=== PATIENT | female | born 1970 | race Caucasian/White ===

== ENCOUNTER 2024-09-25 10:05 | Inpatient (IN) | payer OTHER, SELFPAY ==
[2024-09-25] VITALS (8 sets, daily range): BP systolic 113–138; BP diastolic 64–88; PULSE 48–69; RESP 15–20; TEMP 36.3–36.4; O2SAT 91–99; BMI 36.8
--- NOTE | ~2024-09-25 | XR_ITS ---
EXAMINATION: XR chest 1V portable 09/25/2024 11:53 INDICATION: Preoperative left ankle fracture PROCEDURE: AP portable chest COMPARISON: No prior studies for comparison. FINDINGS: The lungs are clear. The cardiomediastinal silhouette is within normal limits. There are no pleural effusions. There is no pneumothorax suspected. IMPRESSION: 1: NO ACUTE CARDIOPULMONARY DISEASE. Reviewed, dictated and finalized at location B. KER
--- NOTE | ~2024-09-25 | XR_ITS ---
EXAMINATION: XR tibia fibula LT 2V DATE: 09/25/2024 10:19 INDICATION: Left lower leg injury. TECHNIQUE: 2 views of left tibia and fibula were obtained. COMPARISON: None. FINDINGS: There is a comminuted fracture of distal fibula. The main distal fracture fragment demonstr ates 40 degrees posterior angulation and 3 mm lateral displacement. There is posterior dislocation of talus respect to the tibial plafond. There is a displaced fracture of posterior malleolus. There is at least mild knee joint osteoarthrosis. IMPRESSION: 1. Left ankle fracture dislocation. Reviewed, dictated and finalized at location A. ER DISTILLERY
--- NOTE | ~2024-09-25 | XR_ITS ---
EXAMINATION: XR surgery orthopedic DATE: 09/26/2024 11:19 INDICATION: ORIF left ankle fracture TECHNIQUE: 5 fluoroscopic images of the left ankle were obtained during procedure performed by Dr. Florin bajwa. Radiologist was not present for the imaging or procedure. The amount of fluoroscopy time used during this procedure was 0.6 minutes. Total DAP was 0.362 Gycm^2 COMPARISON: 09/25/2024 FINDINGS: Images demonstrate initial reduction and fixation near-anatomic alignment of the posterior malleolar fracture fragment which is fixed with a pair of anterior to posterior directed cannulated lag screws. Subsequently there is fixation in near-anatomic alignment with lateral plate and screws of the obliq ue fibular fracture. There is also a tightrope type syndesmotic fixation with metallic button along t he medial side of the lucent tunnel extending to the distal tibial and fibular metaphyseal regions. A nkle mortise is congruent. Joint spaces are normal. No new fractures identified. IMPRESSION: 1. Near-anatomic alignment post open reduction internal fixation of medial and posterior malleolar fr actures at the left ankle. Reviewed, dictated and finalized at location B. 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 Near-anatomic alignment post open reduction internal fixation of medial and posterior malleolar fractures at the left ankle.
--- NOTE | ~2024-09-25 | XR_ITS ---
EXAMINATION: XR ankle LT min 3V DATE: 09/25/2024 11:01 INDICATION: Status post reduction of a left ankle fracture dislocation TECHNIQUE: Anteroposterior, oblique and lateral views of the left ankle were obtained. COMPARISON: None. FINDINGS: The left ankle fracture dislocation has been reduced with significant improvement in alignment. There is 3 mm residual lateral displacement of the oblique lateral malleolar fracture with similar degree of residual lateral subluxation of the previously dislocated talar dome with respect to the tibial pl afond. This can be seen with persistent mild widening of the medial clear space. Significant decrease in now 4 mm posterior superior displacement of the posterior malleolar fragment with to have 3 mm re sidual incongruity along articular surface at the posterior tibial plafond and. No other fractures id entified. Mild osteoarthritis at a few of the tarsal metatarsal joints in the midfoot. Fiberglas spli nting material has been placed about the foot and visualized lower leg. IMPRESSION: 1. Significant decrease in now mild residual displacement of lateral and posterior malleolar fragment s and successful reduction of the previously dislocated tibiotalar joint with mild residual lateral s ubluxation. Reviewed, dictated and finalized at location A. 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 Significant decrease in now mild residual displacement of lateral and buffing wheel inspector ior malleolar fragments and successful reduction of the previously dislocated t ibiotalar joint with mild residual lateral subluxation.
--- NOTE | ~2024-09-25 | XR_ITS ---
XR ankle LT min 3V 09/25/2024 10:19 Indication: Left ankle deformity after fall Procedure: 2 views left ankle Comparison: No prior studies for comparison. Findings: There is a comminuted displaced distal fibular fracture with lateral angulation. There is l ateral displacement of the talus with respect to the tibia. There is a displaced fracture of the post erior aspect of the distal tibia. Talar dome is grossly unremarkable. Mild diffuse soft tissue swelli ng. Impression: 1: Displaced fractures of the distal aspect of the fibula and the posterior inferior margin of the ti lupe. There is posterior and lateral displacement of the talus with respect to the tibia. Reviewed, dictated and finalized at location B. ER HAND Impression: 1: Displaced fractures of the distal aspect of the fibula and the posterior inf erior margin of the tibia. There is posterior and lateral displacement of the t alus with respect to the tibia.
--- NOTE | 2024-09-25 10:16 | ED.LOWEXIN ---
HPI - Extremity Injury (Lower) General Chief Complaint: Extremity Injury, Lower <Sunshine Carney PA-C - Last Filed: 09/25/24 14:45> Stated Complaint: LE deformity <VALERIE Juan Last Filed: 09/25/24 14:45> Source: patient <VALERIE Juan Last Filed: 09/25/24 14:45> Mode of arrival: EMS <VALERIE Juan Last Filed: 09/25/24 14:45> Limitations: no limitations <VALERIE Juan Last Filed: 09/25/24 14:45> History of Present Illness HPI Narrative: Patient is a 54-year-old female who presents the ED via EMS with report of left ankle pain. Patient reports she was changing her son around her house wearing slippers when she slipped and fell, felt a sharp pain in her left ankle. Deformity noted. She began having some discoloration to her foot and EMS was called. Denies numbness. Denies any other injuries. Denies head injury or LOC. <Sunshine Carney PA-C Last Filed: 09/25/24 14:45> Related Data Allergies/Adverse Reactions: Allergies Allergy/AdvReac Type Severity Reaction Status Date / Time No Known Allergies Allergy Verified 09/25/24 10:11 <Sunshine Carney PA-C - Last Filed: 09/25/24 14:45> Review of Systems Review of Systems: All systems reviewed & are unremarkable except as noted in HPI. <Sunshine Carney PA-C - Last Filed: 09/25/24 14:45> All systems reviewed & are unremarkable except as noted in HPI and below <VALERIE Juan Last Filed: 09/25/24 14:45> Exam Narrative: GENERAL: Well appearing, obese with BMI of 39.9, non-toxic, in no acute distress. HEAD: Normocephalic, atraumatic. RESPIRATORY: Airway patent, respirations nonlabored. CARDIOVASCULAR: Regular rate and rhythm without murmurs, rubs, or gallops. DP pulses are intact. MUSCULOSKELETAL: Obvious deformity to L ankle with anterior protrusion of distal tibia with dimpling of skin above lateral and medial malleoli. Focal TTP. Sensation is intact throughout left foot and lower leg. Capillary refill brisk and intact throughout toes. SKIN: Warm, dry, normal color. NEURO: A&O X3. Speech clear. No ataxic movements. PSYCHIATRIC: Appropriate mood and affect. Normal interaction. <Sunshine Carney PA-C - Last Filed: 09/25/24 14:45> Course [employer]/PA Physician Supervision For this patient encounter, I reviewed the [employer] or PA documentation, treatment plan, and medical decision making; and I had [id number] time with this patient. <John Bronson MD - Last Filed: 09/25/24 10:26> Vital Signs Vital signs: Vital Signs Temperature 97.5 F L 09/25/24 10:07 Pulse Rate 67 09/25/24 10:07 Respiratory Rate 20 09/25/24 10:07 Blood Pressure 138/84 09/25/24 10:07 Pulse Oximetry 98 09/25/24 10:07 Oxygen Delivery Room Air 09/25/24 10:07 Temperature 97.5 F L 09/25/24 10:07 Pulse Rate 48 L 09/25/24 14:00 Respiratory Rate 16 09/25/24 14:00 Blood Pressure 120/88 09/25/24 13:31 Pulse Oximetry 91 09/25/24 14:00 Oxygen Delivery Room Air 09/25/24 10:07 <Sunshine Carney PA-C - Last Filed: 09/25/24 14:45> Vital Signs Temperature 97.5 F L 09/25/24 10:07 Pulse Rate 67 09/25/24 10:07 Respiratory Rate 20 09/25/24 10:07 Blood Pressure 138/84 09/25/24 10:07 Pulse Oximetry 98 09/25/24 10:07 Oxygen Delivery Room Air 09/25/24 10:07 Temperature 97.5 F L 09/25/24 10:07 Pulse Rate 48 L 09/25/24 14:00 Respiratory Rate 16 09/25/24 14:00 Blood Pressure 120/88 09/25/24 13:31 Pulse Oximetry 91 09/25/24 14:00 Oxygen Delivery Room Air 09/25/24 10:07 <John Bronson MD - Last Filed: 09/25/24 10:26> Procedures Orthopedic Joint Reduction Joint #1: Orthopedic Joint Reduction Date: 09/25/24 <VALERIE Juan Last Filed: 09/25/24 14:45> Orthopedic Joint Reduction Time: 10:50 <Sunshine Carney PA-C - Last Filed: 09/25/24 14:45> Time Out Performed: Yes <VALERIE Juan Last Filed: 09/25/24 14:45> Side: left <VALERIE Juan Last Filed: 09/25/24 14:45> Joint Reduction Location: ankle <VALERIE Juan Last Filed: 09/25/24 14:45> Analgesia: other (dilaudid) <VALERIE Juan Last Filed: 09/25/24 14:45> Pre-Procedure Neuro Vascular Exam: normal <VALERIE Juan Last Filed: 09/25/24 14:45> Local Anesthesia: none <VALERIE Juan Last Filed: 09/25/24 14:45> Technique used: direct manipulation <VALERIE Juan Last Filed: 09/25/24 14:45> Post-reduction neuro exam: intact and no change <VALERIE Juan Last Filed: 09/25/24 14:45> Post-reduction vascular: intact and no change <VALERIE Juan Last Filed: 09/25/24 14:45> Post Reduction X-Ray Obtained: Yes <VALERIE Juan Last Filed: 09/25/24 14:45> Post Reduction X-Ray Results: reduced <VALERIE Juan Last Filed: 09/25/24 14:45> Splint Applied: Yes <VALERIE Juan Last Filed: 09/25/24 14:45> Patient Tolerated Procedure: well and no complications <VALERIE Juan Last Filed: 09/25/24 14:45> Orthopedic Splinting/Casting Injury #1: Splinting/Casting Date: 09/25/24 <Sunshine Carney PA-C - Last Filed: 09/25/24 14:45> Splinting/Casting Time: 10:58 <VALERIE Juan Last Filed: 09/25/24 14:45> Side: left <VALERIE Juan Last Filed: 09/25/24 14:45> Lower Extremity Injury Location: lower leg and ankle <VALERIE Juan Last Filed: 09/25/24 14:45> Lower Extremity Immobilizer: posterior splint and stirrup splint <VALERIE Juan Last Filed: 09/25/24 14:45> Splint: customized in ED <VALERIE Juan Last Filed: 09/25/24 14:45> Pre-Procedure Neuro Vascular Exam: normal <VALERIE Juan Last Filed: 09/25/24 14:45> Post-Procedure Neuro Vascular Exam: normal <VALERIE Juan Last Filed: 09/25/24 14:45> Other Orthopedic Equipment: crutches <VALERIE Juan Last Filed: 09/25/24 14:45> MDM - Extremity Injury (Lower) MDM Narrative Medical decision making narrative: Patient presented to ED with ground level fall, pain/deformity to L ankle. VSS upon arrival. Obvious deformity noted. Neurovascularly intact. Able to palpate dp pulses. Sensation intact. No other injuries. XR showing dislocation of ankle, fx of distal fibula and posterior malleoli. Patient updated on imaging results. Given pain medication and joint was reduced in the ED with direct manipulation. Placed in short leg posterior leg splint with stirrup. Post reduction film showing reduction of ankle, improvement of lateral displacement. Discussed case with Dr. Hanks, orthopedics, advised can take to the OR tomorrow morning to repair. No availability for OR today. Patient is in agreement with this plan and surgery tomorrow. Discussed case with Sada Viramontes [employer] hospitalist, accepted patient for admission. Pre-op workup obtained. NPO midnight. <Sunshine Carney PA-C - Last Filed: 09/25/24 14:45> Medical Records Attestation: I reviewed the patient's medical records. <Sunshine Carney PA-C - Last Filed: 09/25/24 14:45> Lab Data Attestation: I reviewed the patient's lab results. <Sunshine Carney PA-C - Last Filed: 09/25/24 14:45> Result diagrams: 09/25/24 11:51 09/25/24 11:51 <Sunshien Carney PA-C - Last Filed: 09/25/24 14:45> Labs: Lab Results 09/25/24 Range/Units 11:51 WBC 4.8 (4.5-10.0) K/mm3 RBC 4.41 (4.2-5.4) M/mm3 Hgb 14.0 (12.0-15.0) g/dL Hct 40.3 (37.0-47.0) % MCV 91.4 (80-100) fl MCH 31.7 (26-34) pg MCHC 34.7 (32-36) g/dl RDW 12.6 (11.5-14.5) % Plt Count 192 (150-375) k/mm3 MPV 9.3 (7.4-10.4) fl Immature Gran % (Auto) 0.2 (0-0.5) % Neut % (Auto) 69.5 (45.5-73.1) % Lymph % (Auto) 23.9 (18.3-44.2) % [place] % (Auto) 5.4 (2.6-8.5) % Eos % (Auto) 0.4 (0-4.4) % Baso % (Auto) 0.6 (0.2-1.2) % Lymph # (Auto) 1.15 (0.9-3.2) K/mm3 [place] # (Auto) 0.3 (0.1-0.6) K/mm3 Eos # (Auto) 0.0 (0-0.3) K/mm3 Baso # (Auto) 0.0 (0.0-0.1) K/mm3 Abs Immat Gran (auto) 0.01 (0.00-0.031) K/mm3 Absolute Neuts (auto) 3.4 (1.3-6.7) K/mm3 Absolute Nucleated RBC 0.000 (0.0-0.012) K/mm3 Nucleated RBC % 0.0 (0.0-0.2) % PT 13.1 (11.1-14.7) Seconds INR 0.9 APTT 26.3 (22.3-36.8) Seconds Sodium 138 (137-145) mmol/L Potassium 4.1 (3.4-5.0) mmol/L Chloride 105 (98-107) mmol/L Carbon Dioxide 27 (22-30) mmol/L Anion Gap 6 (4-12) mmol/L BUN 15 (7-17) mg/dL Creatinine 0.43 L (0.7-1.0) mg/dL Estim Creat Clear Calc 128 ml/min Estimated GFR > 60 (59 - ) Glucose 113 H (65-110) mg/dL Calcium 9.1 (8.4-10.2) mg/dL Total Bilirubin 0.4 (0.2-1.3) mg/dL AST 33 (14-36) U/L ALT 26 (6-35) U/L Alkaline Phosphatase 74 (38-126) U/L Total Protein 7.0 (6.3-8.2) g/dL Albumin 4.3 (3.5-5.1) g/dL <Sunshine Carney PA-C - Last Filed: 09/25/24 14:45> Lab Results 09/25/24 Range/Units 11:51 WBC 4.8 (4.5-10.0) K/mm3 RBC 4.41 (4.2-5.4) M/mm3 Hgb 14.0 (12.0-15.0) g/dL Hct 40.3 (37.0-47.0) % MCV 91.4 (80-100) fl MCH 31.7 (26-34) pg MCHC 34.7 (32-36) g/dl RDW 12.6 (11.5-14.5) % Plt Count 192 (150-375) k/mm3 MPV 9.3 (7.4-10.4) fl Immature Gran % (Auto) 0.2 (0-0.5) % Neut % (Auto) 69.5 (45.5-73.1) % Lymph % (Auto) 23.9 (18.3-44.2) % [place] % (Auto) 5.4 (2.6-8.5) % Eos % (Auto) 0.4 (0-4.4) % Baso % (Auto) 0.6 (0.2-1.2) % Lymph # (Auto) 1.15 (0.9-3.2) K/mm3 [place] # (Auto) 0.3 (0.1-0.6) K/mm3 Eos # (Auto) 0.0 (0-0.3) K/mm3 Baso # (Auto) 0.0 (0.0-0.1) K/mm3 Abs Immat Gran (auto) 0.01 (0.00-0.031) K/mm3 Absolute Neuts (auto) 3.4 (1.3-6.7) K/mm3 Absolute Nucleated RBC 0.000 (0.0-0.012) K/mm3 Nucleated RBC % 0.0 (0.0-0.2) % PT 13.1 (11.1-14.7) Seconds INR 0.9 APTT 26.3 (22.3-36.8) Seconds Sodium 138 (137-145) mmol/L Potassium 4.1 (3.4-5.0) mmol/L Chloride 105 (98-107) mmol/L Carbon Dioxide 27 (22-30) mmol/L Anion Gap 6 (4-12) mmol/L BUN 15 (7-17) mg/dL Creatinine 0.43 L (0.7-1.0) mg/dL Estim Creat Clear Calc 128 ml/min Estimated GFR > 60 (59 - ) Glucose 113 H (65-110) mg/dL Calcium 9.1 (8.4-10.2) mg/dL Total Bilirubin 0.4 (0.2-1.3) mg/dL AST 33 (14-36) U/L ALT 26 (6-35) U/L Alkaline Phosphatase 74 (38-126) U/L Total Protein 7.0 (6.3-8.2) g/dL Albumin 4.3 (3.5-5.1) g/dL <John Bronson MD - Last Filed: 09/25/24 10:26> Imaging Data Attestation: I personally reviewed and interpreted this imaging study as follows: <Sunshine Carney PA-C - Last Filed: 09/25/24 14:45> Radiologist's impression: ITS Impressions Ankle X-Ray 09/25/24 10:22 Impression: 1: Displaced fractures of the distal aspect of the fibula and the posterior inferior margin of the tibia. There is posterior and lateral displacement of the talus with respect to the tibia. Tibia/Fibula X-Ray 09/25/24 10:26 IMPRESSION: 1. Left ankle fracture dislocation. Ankle X-Ray 09/25/24 11:03 IMPRESSION: 1. Significant decrease in now mild residual displacement of lateral and posterior malleolar fragments and successful reduction of the previously dislocated tibiotalar joint with mild residual lateral subluxation. <Sunshine Carney PA-C - Last Filed: 09/25/24 14:45> Discharge Plan Discharge Clinical Impression: Fall from ground level Bimalleolar fracture of left ankle Qualifiers: Encounter type: initial encounter Fracture type: closed Qualified Code(s): S82.842A - Displaced bimalleolar fracture of left lower leg, initial encounter for closed fracture Closed dislocation of ankle Qualifiers: Encounter type: initial encounter Laterality: left Qualified Code(s): S93.05XA - Dislocation of left ankle joint, initial encounter <Sunshine Carney PA-C - Last Filed: 09/25/24 14:45> Patient Disposition: Still a Patient <VALERIE Juan Last Filed: 09/25/24 14:45> Condition: Stable <VALERIE Juan Last Filed: 09/25/24 14:45> Patient Language: Setswana <VALERIE Juan Last Filed: 09/25/24 14:45>
[2024-09-25] MEDS: HYDROmorphone HCL INJ (*CRX) 1 MG/ML SYR 0.5 MG IV PUSH ×3 (10:20→19:51)
[2024-09-25] MEDS: HYDROmorphone HCL INJ (*CRX) 1 MG/ML SYR IV PUSH (10:45)
--- OUTSIDE RECORDS SUMMARY | 2024-09-25 11:31 | XMS_ITS | Referral Summary ---
Author Organization [facility] Building [address] Address [address] [place] [address] Care Team Providers Care Executive Administrative Asst Name Role Phone Harvey Leonard MD Unavailable [phone] Jing Knight MD Primary Care Provider Trudi Lira DPT Unavailab le Encounters Date Type Department Care Team Description 09/10/2024 2:15 PM DAILY SALES AUDIT CLERK Telemedicine [facility] [id number] [address] Harvey Rodriguez MD ADHD, adult residual type (Primary Dx); Moderate episode of recurrent major depressive disorder (HCC) from Last 3 Months Allergies Active Allergy Reactions Criticality Noted Date Comments Chlorhexidine Rash Medium 03/06/2024 Medications aspirin 81 mg enteric coated tabletIndication s:prevention of thrombosis Take 1 tablet (81 mg total) by mouth nightly Active fluticasone propionate (FLONASE) 50 mcg/actuation nasal sprayIndications :Seasonal allergic rhinitis due to pollen Administer 2 sprays into each nostril daily 16 g 11 04/19/20 Active Additional Information Patient taking differently:2 spray each nostrilAs needed, allergies, rhinitis, Informant: Self, Reported on 12/24/2023 DULoxetine (CYMBALTA) 60 mg capsuleIndicatio ns:Lumbar radiculopathy Take 1 capsule (60 mg total) by mouth daily 90 capsule 3 11/14/19 24 2024 Active Additional Information Patient taking differently:60 mg oralNightly, Indications: Anxiety with Depression, pain, Informant: Self, Reported on 12/24/2023 acetaminophen (TYLENOL) 500 mg tablet Take 2 tablets (1,000 mg total) by mouth every 6 (six) hours as needed for pain 60 tablet 03/13/20 24 Active ibuprofen (ADVIL,MOTRIN) 600 mg tablet Take 1 tablet (600 mg total) by mouth every 6 (six) hours as needed for pain 30 tablet 03/13/20 24 Active famotidine (PEPCID) 20 mg tabletIndication s:Gastroesophage al reflux disease without esophagitis Take 1 tablet (20 mg total) by mouth 2 (two) times a day as needed for heartburn or indigestion 180 tablet 1 03/27/20 24 Active Gemtesa 75 mg tablet TAKE 1 TABLET BY MOUTH EVERY DAY 90 tablet 2 06/04/20 24 Active lisdexamfetamine (Vyvanse) 50 mg capsule Take 1 capsule (50 mg total) by mouth every morning 30 capsule 09/10/19 25 2024 Active lisdexamfetamine (Vyvanse) 50 mg capsule Take 1 capsule (50 mg total) by mouth every morning 30 capsule 10/10/19 25 2024 Active lisdexamfetamine (Vyvanse) 50 mg capsule Take 1 capsule (50 mg total) by mouth every morning 30 capsule 11/10/19 25 2024 Active lisdexamfetamine (Vyvanse) 50 mg capsule Take 1 capsule (50 mg total) by mouth every morning 30 capsule 06/15/20 24 2024 Discontinued lisdexamfetamine (Vyvanse) 50 mg capsule Take 1 capsule (50 mg total) by mouth every morning 30 capsule 07/15/20 24 2024 Discontinued lisdexamfetamine (Vyvanse) 50 mg capsule Take 1 capsule (50 mg total) by mouth every morning 30 capsule 08/14/20 24 2024 Discontinued Active Problems Problem Noted Date Diagnosed Date Postoperative state 02/15/2024 Mixed stress and urge urinary incontinence 07/27 Assessment & Plan (11/29/2023 1:12 PM CDT): -confirmed on urodynamics in 08/2023 -her symptoms have been refractory to medications; PFPT has been helpful in regards to urge suppression -currently on Gemtesa, we discussed trial off medication prior to Interstim if she desires to see how much it is helping. We discussed that they may want her to stop medication during trial phase. -she has upcoming procedure dates with Dr. Ragsdale for Bulkamid to address NAHOMI and Interstim for UUI Pelvic floor dysfunction in female 07/27/2023 Assessment & Plan (11/29/2023 1:08 PM CDT): -she has noticed significant improvement with PFPT and had upcoming visit. Discussed having her return to PFPT following Bulkamid and SNS placement Other chest pain 10/11/2022 Overview (10/11/2022): Pt reports negative cardiac eval in 2016. [place] related to stress/anxiety. Monitor. If psych feels unrelated to anxiety then consider refer to cards ADHD, adult residual type 08/07/2022 Assessment & Plan (09/10/2024 2:33 PM DAILY SALES AUDIT CLERK): Chronic, persistent symptoms of inattention, distractibility, inability to complete tasks on time, disorganization, failure to give close attention to details/careless mistakes, difficulty sustaining attention in tasks, loses items, forgetful in daily activities, and is easily distracted by extraneous stimuli. There is clear evidence of clinically significant impairment in social, academic, and/or occupational functioning. The patient reports overall efficacy with the current medication regimen. The patient reports taking all medications as prescribed. The patient does not report any side effects from these medications. Risk of long-term cardiovascular complications discussed with the patient at length including increased likelihood of changes to the structure and function being of the heart and cardiovascular system. The patient verbalized an understanding and expressed a desire to continue with current medication management. Compensatory strategies discussed for dealing with the ongoing symptoms of ADHD including the importance of structure, planning, and organization. Continue treatment with the following medications: Vyvanse 50 mg daily Refills sent to the patient's pharmacy. Continue to monitor at interval as discussed. Assessment & Plan (06/15/2024 9:27 PM CDT): Chronic, persistent symptoms of inattention, distractibility, inability to complete tasks on time, disorganization, failure to give close attention to details/careless mistakes, difficulty sustaining attention in tasks, loses items, forgetful in daily activities, and is easily distracted by extraneous stimuli. There is clear evidence of clinically significant impairment in social, academic, and/or occupational functioning. The patient reports overall efficacy with the current medication regimen. The patient reports taking all medications as prescribed. The patient does not report any side effects from these medications. Risk of long-term cardiovascular complications discussed with the patient at length including increased likelihood of changes to the structure and function being of the heart and cardiovascular system. The patient verbalized an understanding and expressed a desire to continue with current medication management. Compensatory strategies discussed for dealing with the ongoing symptoms of ADHD including the importance of structure, planning, and organization. Continue treatment with the following medications: Vyvanse 50 mg daily Refills sent to the patient's pharmacy. Continue to monitor at interval as discussed. Assessment & Plan (03/23/2024 8:56 PM CDT): Chronic, persistent symptoms of inattention, distractibility, inability to complete tasks on time, disorganization, failure to give close attention to details/careless mistakes, difficulty sustaining attention in tasks, loses items, forgetful in daily activities, and is easily distracted by extraneous stimuli. There is clear evidence of clinically significant impairment in social, academic, and/or occupational functioning. The patient reports overall efficacy with the current medication regimen. The patient reports taking all medications as prescribed. The patient does not report any side effects from these medications. Risk of long-term cardiovascular complications discussed with the patient at length including increased likelihood of changes to the structure and function being of the heart and cardiovascular system. The patient verbalized an understanding and expressed a desire to continue with current medication management. Compensatory strategies discussed for dealing with the ongoing symptoms of ADHD including the importance of structure, planning, and organization. Continue treatment with the following medications: Vyvanse 50 mg daily Refills sent to the patient's pharmacy. Continue to monitor at interval as discussed. Assessment & Plan (11/21/2023 7:35 PM CDT): Chronic, persistent symptoms of inattention, distractibility, inability to complete tasks on time, disorganization, failure to give close attention to details/careless mistakes, difficulty sustaining attention in tasks, loses items, forgetful in daily activities, and is easily distracted by extraneous stimuli. There is clear evidence of clinically significant impairment in social, academic, and/or occupational functioning. The patient reports overall efficacy with the current medication regimen. The patient reports taking all medications as prescribed. The patient does not report any side effects from these medications. Risk of long-term cardiovascular complications discussed with the patient at length including increased likelihood of changes to the structure and function being of the heart and cardiovascular system. The patient verbalized an understanding and expressed a desire to continue with current medication management. Compensatory strategies discussed for dealing with the ongoing symptoms of ADHD including the importance of structure, planning, and organization. Continue treatment with the following medications: Vyvanse 50 mg daily Refills sent to the patient's pharmacy. Continue to monitor at interval as discussed. Assessment & Plan (08/01/2023 1:44 PM DAILY SALES AUDIT CLERK): Chronic, persistent symptoms of inattention, distractibility, inability to complete tasks on time, disorganization, failure to give close attention to details/careless mistakes, difficulty sustaining attention in tasks, loses items, forgetful in daily activities, and is easily distracted by extraneous stimuli. There is clear evidence of clinically significant impairment in social, academic, and/or occupational functioning. The patient reports overall efficacy with the current medication regimen. The patient reports taking all medications as prescribed. The patient does not report any side effects from these medications. Risk of long-term cardiovascular complications discussed with the patient at length including increased likelihood of changes to the structure and function being of the heart and cardiovascular system. The patient verbalized an understanding and expressed a desire to continue with current medication management. Compensatory strategies discussed for dealing with the ongoing symptoms of ADHD including the importance of structure, planning, and organization. Continue treatment with the following medications: Vyvanse 50 mg daily No refills needed at this time by the patient. Continue to monitor at interval as discussed. Assessment & Plan (06/19/2023 5:13 PM CDT): Chronic, persistent symptoms of inattention, distractibility, inability to complete tasks on time, disorganization, failure to give close attention to details/careless mistakes, difficulty sustaining attention in tasks, loses items, forgetful in daily activities, and is easily distracted by extraneous stimuli. There is clear evidence of clinically significant impairment in social, academic, and/or occupational functioning. The patient reports overall efficacy with the current medication regimen. The patient reports taking all medications as prescribed. The patient does not report any side effects from these medications. Risk of long-term cardiovascular complications discussed with the patient at length including increased likelihood of changes to the structure and function being of the heart and cardiovascular system. The patient verbalized an understanding and expressed a desire to continue with current medication management. Compensatory strategies discussed for dealing with the ongoing symptoms of ADHD including the importance of structure, planning, and organization. Continue treatment with the following medications: Vyvanse 50 mg daily No refills needed at this time by the patient. Continue to monitor at interval as discussed. Assessment & Plan (08/07/2022 5:33 PM DAILY SALES AUDIT CLERK): Chronic, persistent symptoms of inattention, distractibility, inability to complete tasks on time, disorganization, failure to give close attention to details/careless mistakes, difficulty sustaining attention in tasks, loses items, forgetful in daily activities, and is easily distracted by extraneous stimuli. There is clear evidence of clinically significant impairment in social, academic, and/or occupational functioning. The patient reports overall efficacy with the current medication regimen. The patient reports taking all medications as prescribed. The patient does not report any side effects from these medications. Risk of long-term cardiovascular complications discussed with the patient at length including increased likelihood of changes to the structure and function being of the heart and cardiovascular system. The patient verbalized an understanding and expressed a desire to continue with current medication management. Compensatory strategies discussed for dealing with the ongoing symptoms of ADHD including the importance of structure, planning, and organization. Continue treatment with the following medications: Vyvanse 50 mg daily No refills needed at this time by the patient. Continue to monitor at interval as discussed. Seasonal allergic rhinitis due to pollen 022 Assessment & Plan (04/19/2022 1:28 PM CDT): Sinus Rinse followed by Flonase 2 sprays into each nostril while looking down over the sink, do not sniff in or blow nose after use for at least 30 minutes daily Consider adding Zyrtec based on Blood allergy testing Esophagram to rule out Zenker diverticulum Call back with reflux medication and dosage Pharyngoesophageal dysphagia 04/19/2022 Assessment & Plan (04/19/2022 1:28 PM CDT): Sinus Rinse followed by Flonase 2 sprays into each nostril while looking down over the sink, do not sniff in or blow nose after use for at least 30 minutes daily Consider adding Zyrtec based on Blood allergy testing Esophagram to rule out Zenker diverticulum Call back with reflux medication and dosage Lumbar radiculopathy 02/28/2022 Insomnia secondary to chronic pain 02/28/2022 manager intermediate (current) use of opiate analgesic 02/17 Moderate episode of recurrent major depressive d isorder 01/19/2022 Assessment & Plan (09/10/2024 2:33 PM DAILY SALES AUDIT CLERK): Chronic condition, persistent symptoms, but functioning at or close to baseline at this time. Symptoms are reasonably well controlled on current medication regimen. The patient does not endorse any active suicidal ideation. Medication changes today: none Ongoing management to be provided as discussed and at interval as planned. Assessment & Plan (06/15/2024 9:27 PM CDT): Chronic condition, persistent symptoms, but functioning at or close to baseline at this time. Symptoms are reasonably well controlled on current medication regimen. The patient does not endorse any active suicidal ideation. Medication changes today: none Ongoing management to be provided as discussed and at interval as planned. Assessment & Plan (03/23/2024 8:56 PM CDT): Chronic condition, persistent symptoms, but functioning at or close to baseline at this time. Symptoms are reasonably well controlled on current medication regimen. The patient does not endorse any active suicidal ideation. Medication changes today: none Ongoing management to be provided as discussed and at interval as planned. Assessment & Plan (11/21/2023 7:35 PM CDT): Chronic condition, persistent symptoms, but functioning at or close to baseline at this time. Symptoms are reasonably well controlled on current medication regimen. The patient does not endorse any active suicidal ideation. Medication changes today: none Ongoing management to be provided as discussed and at interval as planned. Assessment & Plan (08/01/2023 1:47 PM DAILY SALES AUDIT CLERK): Chronic condition, persistent symptoms, but functioning at or close to baseline at this time. Symptoms are reasonably well controlled on current medication regimen. The patient does not endorse any active suicidal ideation. Medication changes today: none Ongoing management to be provided as discussed and at interval as planned. Assessment & Plan (06/19/2023 5:13 PM CDT): Chronic condition, persistent symptoms, but functioning at or close to baseline at this time. Symptoms are reasonably well controlled on current medication regimen. The patient does not endorse any active suicidal ideation. Medication changes today: none Ongoing management to be provided as discussed and at interval as planned. Assessment & Plan (08/07/2022 5:35 PM DAILY SALES AUDIT CLERK): Chronic condition, persistent symptoms, but functioning at or close to baseline at this time. Symptoms are reasonably well controlled on current medication regimen. The patient does not endorse any active suicidal ideation. Medication changes today: none Ongoing management to be provided as discussed and at interval as planned. Assessment & Plan (01/19/2022 4:15 PM CDT): Stable. Cont. Current prescription medications. Iliotibial band syndrome of right side 2 Assessment & Plan (01/19/2022 4:15 PM CDT): Chronic, would like to see pain management. Overactive bladder 10/06/2020 Assessment & Plan (06/06/2022 9:01 AM CDT): SINA Horton, will try Detrol LA. patient has had a full workup in the past for Urogynecology and declines a referral at this point. She reports that the your director employment told her she was not a surgical candidate at and that she could try Botox injections or a nerve stimulator device. She is not interested in either solution. Chronic pain of right knee 04/04/2020 Assessment & Plan (01/19/2022 4:15 PM CDT): Chronic, would like to see pain management. Chondromalacia of right patella 12/14/2019 Chronic neck pain 12/14/2019 Assessment & Plan (01/19/2022 4:15 PM CDT): Chronic, would like to see pain management. Chronic right hip pain 12/14/2019 Assessment & Plan (01/19/2022 4:15 PM CDT): Chronic, would like to see pain management. Labral tear of hip, degenerative 12/14/2019 Gastroesophageal reflux disease without esophagi tis 12/14/2019 Assessment & Plan (06/06/2022 9:00 AM CDT): Worsening, patient ran out of medication. Refill prescription sent. Assessment & Plan (01/19/2022 4:13 PM CDT): Currently on omeprazole, referred to ENT for further evaluation and mgmt. She feels that there may be a problem with her vocal cords. Resolved Problems Problem Noted Date Diagnosed Date Resolved Date Encounter for psychiatric assessment 08/07/2022 10/11/2022 Assessment & Plan (08/07/2022 5:31 PM DAILY SALES AUDIT CLERK): Psychiatric assessment was completed during the appointment today. All the paperwork completed by the patient was reviewed by me with the patient. All of the questions posed to me by the patient were answered. A treatment plan was developed in line with the information presented to me. Refer to specific problems for additional information regarding assessment and treatment recommendations. Attention deficit hyperactiv ity disorder (ADHD), predominantly inattentive type 03/03/2022 1 Attention deficit disorder (ADD) in adult 12/14/2019 10/11/2022 Assessment & Plan (06/06/2022 9:01 AM CDT): Patient has not been able to schedule appointment with psychiatry at this point, Sly wilkinson Encouraged patient to schedule appointment with Psychiatry. Immunizations Name Administration Dates Next Due Influenza, Quadrivalent, Spl it, Preservative Free, Intramuscular 06/06/2022 Influenza, Unspecified 07/12/2021,05/25/2020 Tdap 08/20/2016 ZOSTER Recombinant 12/14/2020,10/06/2020 Social History Tobacco Use Types Packs/Day Years Used Date Smoking Tobacco: Never Smokeless Tobacco: Never Tobacco Cessation:Counseling Given: Not Answered Humiliation, Afraid, Rape, and Kick questionnair e Answer Date Recorded Within the last year, have y ou been afraid of your partner or ex-partner? No 09/04/2022 Within the last year, have y ou been humiliated or emotionally abused in other ways by your partner or ex-partner? No Within the last year, have y ou been kicked, hit, slapped, or otherwise physically hurt by your partner or ex-partner? No 09/04/2022 Within the last year, have y ou been raped or forced to have any kind of sexual activity by your partner or ex-partner? No 09/04/2022 AUDIT-C Answer Date Recorded Q1: How often do you have a drink containing alc ohol? Monthly or less 03/13/2024 Q2: How many drinks containi ng alcohol do you have on a typical day when you are drinking? 1 or 2 03/13/2024 Q3: How often do you have si x or more drinks on one occasion? Never 03/13/2024 PHQ-2 Answer Date Recorded PHQ-2 Total Score (If total score is 3 or more points, staff should administer the PHQ-9) 0 09/04/2022 Personal Safety Answer Date Recorded Have you ever been in or are you currently in a harmful physical or emotional relationship or is someone making you feel afraid or unsafe? Denies 03/13/2024 Comments No Sex and Gender Information Value Date Recorded Sex Assigned at Not on file Legal Sex Female 2:05 PM CDT Gender Identity Not on file Sexual Orientation Not on file Last Filed Vital Signs Vital Sign Reading Time Taken Comments Blood Pressure 131/85 05/05/2024 8:30 AM CDT Pulse 65 03/13/2024 4:30 PM CDT Temperature 36.1 C (97 F) 03/13/2024 4:30 PM CDT Respiratory Rate 16 03/13/2024 4:30 PM CDT Oxygen Saturation 97% 03/13/2024 4:30 PM CDT Inhaled Oxygen Concentration - - Weight 83.6 kg (184 lb 6.4 oz) 05/05/2024 8:30 A M CDT Height 162.6 cm (5' 4 ) 05/05/2024 8:30 AM CDT Body Mass Index 31.65 05/05/2024 8:30 AM CDT Plan of Treatment Not on file Medical Devices Implanted Type Area Exchange Floor Manager Device Identifier Shelf Expiration Date Model / Serial / Lot [employer]onic [employer] Envelope Absrb 2.7x2.5in Antibacterial Tyrx Medium Strl [id number] - [id number] - [id number] Implanted:Qty: 1 on 03/13/2024 by Davy Ragsdale MD at [facility] Other - see comments Med[employer]onic Inc 12/08/2024 [id number] / [id number] / [id number] Med[employer]onic [employer] Kit Lead Neurostimulator Percutaneous 4.32mm Spacing Interstim Surescan 28cm [id number] - [id number] Implanted:Qty: 1 on 12/20/2023 by Davy Ragsdale MD at [facility] N/A: Urethra [employer]onic [employer] 06/19/2025 [id number] / / [id number] Med[employer]onic Inc Interstim 100cm Percutaneous Electrode Insulated Kit [id number] - [id number] Implanted:Qty: 1 on 12/20/2023 by Davy Ragsdale MD at [facility] N/A: Urethra [employer]onic [employer] 10/04/2025 [id number] / / [id number] [employer] Bulkamid Urethreal Bulking System [id number] - [id number] Implanted:Qty: 1 on 12/20/2023 by Davy Ragsdale MD at [facility] N/A: Urethra [employer] 07/19/2025 [id number] / / [id number] Medtronic Inc Generator Neurostimulator Bowel Bladder Recharge Free Interstim X [id number] - [id number] Implanted:Qty: 1 on 01/02/2024 by Davy Ragsdale MD at [facility] N/A: Back [employer] 04/02/2025 [id number] / / Procedures Procedure Name Priority Date/Time Associated Diagnosis Comments SCREENING MAMMOGRAM BILATERAL W MANOLO Schedule Routine, Read Routine (OP Routine) 11/09/2022 9:23 AM CDT Screening mammogram, encounter for PAP AND HIGH RISK HPV, REFLEX TO GENOTYPING Routine 09/04/2022 3:00 PM DAILY SALES AUDIT CLERK Well woman exam HEPATITIS C ANTIBODY Routine 03/01/2022 2:47 PM CDT Annual physical exam Encounter for hepatitis C screening test for low risk patient HM COLONOSCOPY Routine 05/26/2021 from Last 3 Months or Most Recently Relevant to Health Maintenance Results * Screening Mammogram Bilateral W [place] (11/09/2022 9:23 AM CDT) Anatomical Region Laterality Modality Breast Bilateral Mammography 11/20/2022 3:49 PM CDT Impressions 11/20/2022 3:49 PM CDT There is no mammographic evidence of malignancy. A 1 year screening mammogram is recommended. BI-RADS: 1 - Negative. The patient has been or will be contacted. The patient will be entered into a reminder system with a target due date of 1 year for her next mammogram. Electronically signed by: Satish Munson M.D. Narrative 11/20/2022 3:49 PM CDT EXAMINATION: SCREENING MAMMOGRAM BILATERAL W MANOLO ORDERING HEALTHCARE PROVIDER: SELF SCREENING MAMMOGRAM HISTORY: Routine screening mammography. COMPARISON: 05/19/2021, 04/01/2020 TECHNIQUE: CC and MLO views of the bilateral breasts were obtained with digital technique using breast tomosynthesis with C view. Computer aided detection was utilized. FINDINGS: DENSITY: There are scattered fibroglandular elements in the bilateral breasts. BREASTS: There are no suspicious masses, suspicious calcifications, or other suspicious findings in either breast. There has been no suspicious interval change. Self Screening Mammogram IMG MAMMO PROCEDURES Fi nal Result * Pap and High Risk HPV, reflex to Genotyping (09/04/2022 3:00 PM DAILY SALES AUDIT CLERK) CLINICAL INFORMATION: [facility] Comment:None given LMP [facility] Comment:A Previous Pap [facility] Comment:NONE GIVEN Prev. Bx [facility] Comment:NONE GIVEN SOURCE: [facility] Comment:Cervix, Endocervix Pap, specimen adequacy [facility] Comment: Satisfactory for evaluation. Endocervical/transformation zone component present. Age and/or menstrual status not provided HPV interp [facility] Comment:Negative for intraep ithelial lesion or malignancy. Refrigerating Machine Operator Que [facility] Comment: YQ, CT(ASCP) CT screening location: [place] [address] Administration JORGE ALBERTO [place] [address] Comment [facility] Comment: EXPLANATORY NOTE: The Pap is a screening test for cervical cancer. It is not a diagnostic test and is subject to false negative and false positive results. It is most reliable when a satisfactory sample, regularly obtained, is submitted with relevant clinical findings and history, and when the Pap result is evaluated along with historic and current clinical information. Human papillomavirus DNA, High Risk E6/E7 Not Detected NOT DETECTED Rosa M [facility] Comment: Not Detected High Risk HPV types (16,18,31,33,35,39,45,51,52, 56,58,59,66,68) were not detected. Other HPV types which cause anogenital lesions may be present. The significance of the other types of HPV in malignant processes has not been established. Methodology: Real Time PCR Thin prep 09/04/2022 3:00 PM DAILY SALES AUDIT CLERK 09/05/2022 12:18 AM DAILY SALES AUDIT CLERK Tawana Warner CALL CENTER MANAGER LAB CYTOLOGY ORDERABLES Fin al Result [place] [address] Administration JORGE ALBERTO [place] [address] Rosa M [place] [address] [facility] [place] [address] * Hepatitis C antibody (03/01/2022 2:47 PM CDT) Hep C Ab Nonreactive Nonreactive [facility] Comment: Interpretive Data Nonreactive: Antibodies to HCV not detected. Does NOT exclude the possibility of recent exposure to HCV. Equivocal: Equivocal for HCV antibodies. Supplemental molecular testing will be automatically performed to determine infection status in accordance with current CDC screening recommendations. Reactive: Positive for HCV antibodies. This may represent current or past HCV infection. Supplemental molecular testing will be automatically performed to determine current infection status in accordance with current CDC screening recommendations. Interpretive data was last revised on 2019. Blood 03/01/2022 2:47 PM CDT 03/01/2022 4:54 PM CDT Amina Malagon DO LAB MICROBIOLOGY - GENERAL ORDERABLES Final Result [facility] [address] [facility] [place] [address] * COLONOSCOPY (05/26/2021) Scribed Colonoscopy Normal Comment:Care Everywhere 02/2021 Historical Provider HEALTH MAINTENANCE Final Result from Last 3 Months or Most Recently Relevant to Health Maintenance Insurance [facility] H[facility] [place] [address] [facility] Care Teams Executive Administrative Asst Relationship Specialty Start Date End Date Jnig Knight MD [address] [place] [address] PCP - General Family Practice 10/11/22 Harvey Leonard MD [address] [place] [address] Pain Management 03/03/22 Trudi Lira DPT [address] [place] [id number] [address] Physical Therapist Physical Therapy 11/27/23
--- OUTSIDE RECORDS SUMMARY | 2024-09-25 11:31 | XMS_ITS | Continuity of Care Document ---
Author Organization [facility] Address [address] [place] [address] Phone Care Team Providers Care Revenue Field Agent Name Role Phone Seth Mcconnell MD Unavailable Unavailable Allergies, Adverse Reactions, Alerts Substance Reaction Status Criticality No Known Allergies Active No Inform ation Medications Medication Instructions Dosage Effective Dates (start - stop) Status Comments ibuprofen 800 mg tablet take 1 tablet by ORAL route every 8 hours with food 800 MG - Active Procedures Procedure Date Office/outpatient visit,est, mod 2022 Supplemental Report X-ray exam pelvis minimum 3 views Global/Postop followup visit Supplemental Report X-ray exam pelvis minimum 3 views Global/Postop followup visit Supplemental Report Clsd Txt Post Pelvic Ring Fx W/ Or W/o A nt Pelv Fx; W/o Manipulation Office consultation, moderate MDM X-ray exam pelvis minimum 3 views Advance Directives Directive Yes / No Effective Date File Name No Information Encounters Encounter Description Practice Location Reason(s) For Visit Diagnoses Date Provider Providers Copied on Encounter Office/outpa tient visit,est, mod [facility], [address], [place], [place], [id number], [place] tel:[phone] [facility] pelvis (chief complaint) Multiple fractures of pelvis w/o disruption of pelvic ring, sequela 3 Enedina Ann. [address] [facility], [address], [id number] , [place]. tel:[phone] [facility], [address], [id number], [place] tel:[phone] [facility] pelvis (chief complaint) Pain in right hipMultiple fractures of pelvis w/o disruption of pelvic ring, sequela 3 Enedina Ann. [address] [facility], [address], [id number] , [place]. tel:[phone] [facility], [address], [id number], [place] [phone] [facility] pelvis (chief complaint) Pain in right hipMultiple fractures of pelvis w/o disruption of pelvic ring, initial encounter for closed fracture 3 Enedina Ann. [address] [facility], [address], [id number] , [place]. tel:[phone] Office consultation , moderate [facility], [address], [id number], [place] tel:[phone] [facility] pelvis (chief complaint) Pain in right hipMultiple fractures of pelvis w/o disruption of pelvic ring, initial encounter for closed fractureContusion of lower back and pelvis, initial encounter 3 Enedina Ann. [address], [id number] , [place]. tel:[phone] Referring Provider: Seth Mcneal, [address] [place] [address], [place], [address] . tel:[phone] Family History Family Member Type Diagnosis Age At Onset Brother Problem (finding) Osteoarthritis Father Problem (finding) Osteoarthritis Father Problem (finding) Hypertension Sister Problem (finding) Hypertension Mother Problem (finding) Osteoarthritis Mother Problem (finding) Cancer, unknown Mother Problem (finding) Hypertension Sister Problem (finding) Osteoarthritis Immunizations Vaccine Date Status Comments influenza, injectable, quadr ivalent, (3 years or older) administered Source: Other Provid er Payers Payer name Insurance type Covered green party ID Authorida patel(s) [facility] Workers Compensation Adm WC [id number] Social History Type Description Quantity Date Captured Comments Alcohol Use Details Caffeine Use Details Unknown Tobacco Use Status Ex-smoker Smoking Status Former smoker Non-Smoking Tobacco Use Details : No Details Available : No Details Available Sex Female Vital Signs Date / Time: Height Weight BMI Pulse Rate Blood Pressure Temperature Respiratory Rate Body Surface Area Head Circumference Head Circ. Percentile Wt./Gabo. Percentile BMI percentile Pulse Ox Inhaled Ox 12:18 PM 64.00 in 87.090 kg (192.00 lbs) 32.9 6 kg/m eter (2) Chief Complaint And Reason For Visit From encounter dated '11/24/2022 12:30'. pelvis (chief complaint). Description: Teressa returns to the office for pelvis follow up. Reason For Referral Reason For Referral No Information Plan Of Treatment Date Type Action Status Referral Ordered: X-ray exam pelvis minimum 3 views ordered History Of Present Illness Encounter Date Complaint History Of Prese nt Illness pelvis Teressa returns to the office for pelvis follow up. pelvis Teressa returns to the office for pelvis follow up. pelvis Teressa returns to the office for pelvis follow up. pelvis Teressa present s to the office for pelvis complaints. Functional Status Date Functional Assessmen t No Information Instructions Date Instruction Additional Infor mation No Information Assessments Type Assessment Date assessment Multiple fractures o f pelvis w/o disruption of pelvic ring, sequela Patient Care Teams Name Effective Dates (start - stop) Status Members No Information
--- OUTSIDE RECORDS SUMMARY | 2024-09-25 11:31 | XMS_ITS | Clinical Summary ---
Author Organization [facility] Address [address] [place] [address] Phone Care Team Providers Care Triple Valve Tester Name Role Phone Jing Knight MD Primary Care Provider Medications Lisdexamfetamine Dimesylate (Vyvanse) 50 MG Chewable Tablet Take by mouth. Active Fesoterodine Fumarate (Toviaz) 8 MG TABLET SR 24 HR Take by mouth. Active DULoxetine (CYMBALTA) [address] Particles Take 60 mg by mouth daily. Active Active Problems Problem Noted Date Diagnosed Date ADD (attention deficit disorder) 11/30/2022 Adjustment disorder with depressed mood 12/01/19 23 Family History Medical History Relation Name Comments Drug Abuse Brother Alcohol Abuse Father Alcohol Abuse Mother Alcohol Abuse Sister Relation Name Status Comments Brother Father Mother Sister Social History Tobacco Use Types Packs/Day Years Used Date Smoking Tobacco: Former Cigarettes Smokeless Tobacco: Never Tobacco Cessation:Counseling Given: Not Answered Alcohol Use Standard Drinks/Week Comments Yes 0 (1 standard drink = 0.6 oz pur e alcohol) very seldomly Comments Unknown Sex and Gender Information Value Date Recorded Sex Assigned at Not on file Legal 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 Gender Identity Not on file Sexual Orientation Not on file Plan of Treatment Health Maintenance Due Date Last Done Comments Hepatitis C Virus (HCV) Screening 1970 Hepatitis B Immunization (1 of 3 - 19+ 3-dose series) 02/26/1988 Pap Smear 1990 Cervical Cancer Screening (CCS) 1999 HPV/Cotest 1999 Colonoscopy 2014 Colorectal Cancer Screening 2014 Cologuard 2019 Immunochemical Fecal Occult Blood 2019 Pneumococcal Immunization (5 0+ years) (1 of 1 - PCV) 2019 Mammogram 05/19/2023 05/19/2021, 04/01/2020 Influenza Immunization (#1) 04/20/202405/20, 07/12/2021, 05/25/2020 SARS-COV-2 Immunization (3 - 2023- season) 2024 08/25/2020, 08/04/2020 Respiratory Syncytial Virus (RSV) Immunization (Adult) (1 - 1-dose 75+ series) 02/26/2044 DTaP/Tdap/Td Immunization Discontinued 08/20/2016 TdaP Immunization Completed 08/20/2016 Zoster Immunization Completed 12/14/2020, 10/06/2020 Meningococcal Immunization (ACWY) Aged Out No longer eligible based on patient's age to complete this topic Pneumococcal Immunization Combined Aged Out No longer eligible based on patient's age to complete this topic Rotavirus Immunization Aged Out No lo nger eligible based on patient's age to complete this topic Goals Goal Patient Goal Type Associated Problems Recent Progress Patient-Stated? Author Behavioral Health Behavioral Health On track( 023 9:09 AM CDT) Yes Marc Branch, PROGRAM DEVELOPMENT MANAGER Note: I need better coping skills than grinding my teeth, to cope with my anger and stress Goal/Objective: Increase coping skills for anger and stress. Anticipated Time Frame for Goal Completion: 6 months Goal Reviewed with: patient Readiness to change: Ready to change Department associated with goal: [facility] Steps to achieve goal: will attend psychotherapy/counseling monthly at least 6 sessions and self disclose to have an outlet for distressing thoughts and feelings. will build insight regarding triggers, both internal and external; pt will be able to identify at least two internal and two external triggers to low and anxious moods. Will identify at least two skills/strategies to use when a triggering event occurs Insurance [employer] Care Teams Triple Valve Tester Relationship Specialty Start Date End Date Jing Knight MD 4 [facility] [address] [address] PCP - General Family Medicine 10/26/22
--- OUTSIDE RECORDS SUMMARY | 2024-09-25 11:31 | XMS_ITS | Clinical Summary ---
Author Organization [facility] Medical Office Building B Address [address] [place] [address] Care Team Providers Care Rock Wool Insulator Name Role Phone Harvey Leonard MD Unavailable [phone] Jing Knight MD Primary Care Provider Trudi Lira DPT Unavailab le Allergies Active Allergy Reactions Criticality Noted Date Comments Chlorhexidine Rash Medium 03/06/2024 Medications aspirin 81 mg enteric coated tabletIndication s:prevention of thrombosis Take 1 tablet (81 mg total) by mouth nightly Active fluticasone propionate (FLONASE) 50 mcg/actuation nasal sprayIndications :Seasonal allergic rhinitis due to pollen Administer 2 sprays into each nostril daily 16 g 11 04/19/20 22 Active Additional Information Patient taking differently:2 spray each nostrilAs needed, allergies, rhinitis, Informant: Self, Reported on 12/24/[address] (CYMBALTA) 60 mg capsuleIndicatio ns:Lumbar radiculopathy Take [...] Pt reports negative cardiac eval in 2016. [place] related to stress/anxiety. Monitor. If psych feels unrelated to anxiety then consider refer to cards ADHD, adult residual type 08/07/2022 Assessment & Plan (09/10/2024 2:33 PM CARD DEALER): Chronic, persistent symptoms of inattention, distractibility, inability [...] discussed. Assessment & Plan (08/01/2023 1:44 PM CARD DEALER): Chronic, persistent symptoms of inattention, distractibility, inability [...] discussed. 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 Assessment & Plan (08/01/2023 1:47 PM CARD DEALER): Chronic condition, persistent symptoms, but functioning at [...] planned. Assessment & Plan (08/07/2022 5:35 PM CARD DEALER): Chronic condition, persistent symptoms, but functioning at [...] medications. Iliotibial band syndrome of right side Assessment & Plan (01/19/2022 4:15 PM CDT): Chronic, would like to see pain management. Overactive bladder 10/06/2020 Assessment & Plan (06/06/2022 9:01 AM CDT): SINA Horton, will try Detrol [place]. patient has had a full workup in the past for Urogynecology and declines a referral at this point. She reports that the your network administrator told her she was not a surgical [...] 10/11/2022 Assessment & Plan (08/07/2022 5:31 PM CARD DEALER): Psychiatric assessment was completed during the appointment [...] appointment with psychiatry at this point, Sly gregory. Encouraged patient to schedule appointment with Psychiatry. Encounters Date Type Department Care Team Description 09/10/2024 2:15 PM CARD DEALER Telemedicine [facility] [address] [place] [id number] Harvey Rodriguez MD ADHD, adult residual type (Primary Dx); Moderate episode of recurrent major depressive disorder (HCC) from Last 3 Months Immunizations Name Administration Dates Next Due Influenza, Quadrivalent, Spl it, Preservative Free, Intramuscular 06/06/2022 Influenza, Unspecified 07/12/2021,05/25/2020 Tdap 08/20/2016 ZOSTER Recombinant 12/14/2020,10/06/2020 Surgical History Surgery Date Site/Laterality Comments FOOT SURGERY 08/20/2005 - 08/19/2006 Bilateral plantar fasciitis x4 SECTION 08/20/1997 - 08/19/19981997 TUBAL LIGATION 08/20/1998 - 08/19/1999 CONDYLOMA EXCISION/FULGURATION 1988 COLONOSCOPY OTHER SURGICAL HISTORY 12/20/2023 interstitil stim stage 1 IMPLANTATION / PLACEMENT EPIDURAL NEUROSTIMULATOR ELECTRODES 01/02/2024 INSERTION/REMOVAL INTERSTIM DEVICE STAGE 2 IMPLANTATION / PLACEMENT EPIDURAL NEUROSTIMULATOR ELECTRODES 03/13/2024 INTERSTIM DEVICE STAGE 1 Generator and lead revision INTERSTIM STAGE 2 Revision of generator and lead revision Medical History Medical History Date Comments Adhd Anxiety OAB (overactive bladder) Depression GERD (gastroesophageal reflu x disease) 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 STI (sexually transmitted infection) 1987 Motion sickness Family History Medical History Relation Name Comments Arthritis Brother Jarred Arthritis Father John Prostate cancer Father John Skin cancer Father John monoglonal gammopathy (MGUS) Father John Breast cancer Father's Sister Arthritis Mother Camille Early Mother Camille Heart disease Mother Camille Hyperlipidemia Mother Camille Hypertension Mother Camille Skin cancer Mother Camille Breast cancer Mother's Sister Arthritis Sister Savannah Deep vein thrombosis Sister Savannah Hypertension Sister Savannah Anesthesia problems Neg Hx Other cancer Neg Hx no midlevel provider, or colo n cancers Relation Name Status Comments Brother Jarred Father John Father's Sister Mother Camille Mother's Sister Sister Savannah Social History Tobacco Use Types Packs/Day Years [...] on file Sexual Orientation Not on file Obstetrics History Para Term AB IAB SAB Ectopic Multiple Livin g Live Births 2 2 2 2 2 Date Outcome GA Total Labor Labor/2nd/3rd Weight Sex Type Anes PTL Arcelia A1 A5 Name Clin Term C-Sec tion Living Term Vag-S pont Living Last Filed Vital Signs Vital Sign Reading [...] 05/05/2024 8:30 AM CDT Plan of Treatment Health Maintenance Due Date Last Done Comments Hepatitis B Screening 1987 Cervical Cancer Screening 09/04/2023 09/04/2022 Depression Screening 09/04/2023 09/04/2022, 06/06/2022, 04/27/2022, Additional history exists Breast Cancer Screening-Mammogram 11/10/2023 11/09/2022, 05/19/2021, 05/19/2021, Additional history exists Regular Well Visit/Exam 18-64 04/11/2024 04/11/2023, 09/04/2022, 01/17/2022 Influenza Vaccine (#1) 2024 , 07/12/2021, 05/25/2020 DTaP/Tdap/Td Vaccine (2 - Td or Tdap) 08/20/2026 08/20/2016 Colon Cancer Screening-Colonoscopy 05/26/2031 05/26/2021 Covid-19 Vaccine Discontinued 08/25/2020, 08/04/2020 Zoster Vaccine Completed 12/14/2020, 10/06/2020 Hepatitis C Screening Completed 03/01/2022 Pneumococcal vaccine <65 Aged Out No longer eligible based on patient's age to complete this topic Medical Devices Implanted Type Area Acute Specialist Device Identifier Shelf Expiration Date Model / Serial / Lot [employer] Envelope Absrb 2.7x2.5in Antibacterial Tyrx Medium Strl [id number] - [id number] - [id number] Implanted:Qty: 1 on 03/13/2024 by Davy Ragsdale MD at [facility] Other - see comments [employer] 12/08/2024 [id number] / [id number] / [id number] [employer] Kit Lead Neurostimulator Percutaneous 4.32mm Spacing Interstim Surescan 28cm [id number] - [id number] Implanted:Qty: 1 on 12/20/2023 by Davy Ragsdale MD at [facility] N/A: Urethra [employer] 06/19/2025 [id number] / / [id number] [employer] Interstim 100cm Percutaneous Electrode Insulated Kit [id number] - [id number] Implanted:Qty: 1 on 12/20/2023 by Davy Ragsdale MD at [facility] N/A: Urethra [employer] 10/04/2025 [id number] / / [id number] [employer] Bulkamid Urethreal Bulking System [id number] - [id number] Implanted:Qty: 1 on 12/20/2023 by Davy Ragsdale MD at [facility] N/A: Urethra [employer] 07/19/2025 [id number] / / [id number] Med[employer]onic Inc Generator Neurostimulator Bowel Bladder Recharge Free Interstim X [id number] - [id number] Implanted:Qty: 1 on 01/02/2024 by Davy Ragsdale MD at [facility] N/A: Back [employer] 04/02/2025 [id number] / / Procedures Procedure Name Priority Date/Time Associated Diagnosis Comments SCREENING MAMMOGRAM BILATERAL W MANOLO Schedule Routine, Read Routine (OP Routine) 11/09/2022 9:23 AM CDT Screening mammogram, encounter for PAP AND HIGH RISK HPV, REFLEX TO GENOTYPING Routine 09/04/2022 3:00 PM CARD DEALER Well woman exam HEPATITIS C ANTIBODY Routine [...] There has been no suspicious interval change. us Self Screening Mammogram IMG MAMMO PROCEDURES Fi nal Result * Pap and High Risk HPV, reflex to Genotyping (09/04/2022 3:00 PM CARD DEALER) CLINICAL INFORMATION: [facility] Comment:None given LMP [facility] Comment:A Previous Pap [facility] Comment:NONE GIVEN Prev. Bx [facility] Comment:NONE GIVEN SOURCE: [facility] Comment:Cervix, Endocervix Pap, specimen adequacy [facility] Comment: Satisfactory for evaluation. Endocervical/transformation zone component present. Age and/or menstrual status not provided HPV interp [facility] Comment:Negative for intraep ithelial lesion or malignancy. Loss Control Technician [facility] Comment: YQ, CT(ASCP) CT screening location: [place] [address] [place] [address] Comment [facility] Comment: EXPLANATORY NOTE: The Pap is a [...] High Risk E6/E7 Not Detected NOT DETECTED [facility] Comment: Not Detected High Risk HPV types (16,18,31,33,35,39,45,51,52, 56,58,59,66,68) were not detected. Other HPV types which cause anogenital lesions may be present. The significance of the other types of HPV in malignant processes has not been established. Methodology: Real Time PCR Thin prep 09/04/2022 3:00 PM CARD DEALER 09/05/2022 12:18 AM CARD DEALER Tawana Warner BULK RECEIVER LAB CYTOLOGY ORDERABLES Fin al Result [facility] [address] [place] [address] [facility] [address] [facility] [place] [address] * Hepatitis C antibody (03/01/2022 2:47 PM CDT) Hep C Ab Nonreactive Nonreactive [facility] Comment: Interpretive Data Nonreactive: Antibodies to HCV [...] LAB MICROBIOLOGY - GENERAL ORDERABLES Final Result Performing Organization Address City/[facility] Co de Phone Number [facility] [address] [place] [address] * COLONOSCOPY (05/26/2021) Scribed Colonoscopy Normal Comment:Care Everywhere 02/2021 Historical Provider HEALTH MAINTENANCE Final Result from Last 3 Months or Most Recently Relevant to Health Maintenance [facility] [place] [address] [facility] [place] [id number] Care Teams Rock Wool Insulator Relationship Specialty Start Date End Date Jing Knight MD [address] [place] [address] DR MAXWELL [address] [place] [address] PCP - General Family Practice 10/11/22 Harvey Leonard MD [address] [place] [address] DR [address]WE[address] [place], [place] [address] [address] Pain Management 03/03/22 Trudi Lira DPT [address] [place] [address] Physical Therapist Physical Therapy 11/27/23
--- OUTSIDE RECORDS SUMMARY | 2024-09-25 11:31 | XMS_ITS | Encounter Summary ---
Author Organization [facility] Healthcare Address [address] [place] [address] Care Team Providers Care Machine Feeder Floorperson Name Role Phone Amina Malagon DO Primary Care Provider [phone] Harvey Leonard MD Unavailable [phone] Jing Knight MD Primary Care Provider Trudi Lira DPT Unavailab le Encounter Details Date Type Department Care Team (Late st Contact Info) Description 05/04/[address] [address] Eli Tabor, RT Social History Tobacco Use Types Packs/Day Years Used Date Smoking Tobacco: Never PHQ-2 Answer Date Recorded PHQ-2 Total Score (If total score is 3 or more points, staff should administer the PHQ-9) 0 04/27/2022 Comments Unknown Sex and Gender Information Value Date Recorded Sex Assigned at Not on file Legal Sex Female 2:05 PM CDT Gender Identity Not on file Sexual Orientation Not on file documented as of this encounter Plan of Treatment Not on file documented as of this encounter Visit Diagnoses Not on filedocumented in this encounter Care Teams Machine Feeder Floorperson Relationship Specialty Start Date End Date Amina Malagon DO PCP - General 12/26/21 10/10/22 Jing Knight MD [address] [place] [address] [id number] PCP - General Family Practice 10/11/22 Harvey Leonard MD [address] [place] [address] Pain Management 03/03/22 Trudi Lira DPT [address] [facility] [address] [place] [address] Physical Therapist Physical Therapy 11/27/23 documented as of this encounter
--- NOTE | 2024-09-25 11:35 | ECG_ITS ---
Test Date: 2024-09-25 12:02:25 Measurements Intervals [place] Rate: 53 P: 71 TX: 180 QRS: 53 QRSD: 90 T: 43 QT: 431 QTc: 408 Interpretive Statements SINUS BRADYCARDIA LOW QRS VOLTAGE IN PRECORDIAL LEADS CANNOT R/O SEPTAL INFARCT, AGE INDETERMINATE BORDERLINE T WAVE ABNORMALITY- ANTERIOR LEADS BASELINE ARTIFACT- I, III, AVR, AVL, AVF ABNORMAL ECG No previous ECG available for comparison Electronically Signed On 09-25-2024 12:53:12 SURG PHYSICIAN ASST by Evgeny Oliva D.O.
[2024-09-25 12:01] LABS: Basophils Percent Auto 0.6 % (0.2-1.2); Eosinophils Percent Auto 0.4 % (0-4.4); Hematocrit 40.3 % (37.0-47.0); Immature Granulocyte Absolute 0.01 K/mm3 (0.00-0.031); Immature Granulocyte Percent A 0.2 % (0-0.5); Lymphocytes Absolute Auto 1.15 K/mm3 (0.9-3.2); Lymphocytes Percent Auto 23.9 % (18.3-44.2); Mean Corpuscular HGB Conc 34.7 g/dl (32-36); Mean Corpuscular Hemoglobin 31.7 pg (26-34); Mean Corpuscular Volume 91.4 fl (80-100); Mean Platelet Volume 9.3 fl (7.4-10.4); Monocytes Absolute Auto 0.3 K/mm3 (0.1-0.6); Monocytes Percent Auto 5.4 % (2.6-8.5); Neutrophils Absolute Auto 3.4 K/mm3 (1.3-6.7); Neutrophils Percent Auto 69.5 % (45.5-73.1); Platelet Count Result 192 k/mm3 (150-375); Red Blood Count 4.41 M/mm3 (4.2-5.4); Red Cell Distribution Width 12.6 % (11.5-14.5); White Blood Count 4.8 K/mm3 (4.5-10.0)
[2024-09-25 12:10] LABS: Alanine Aminotransferase 26 U/L (6-35); Albumin Level 4.3 g/dL (3.5-5.1); Alkaline Phosphatase 74 U/L (38-126); Anion Gap 6 mmol/L (4-12); Aspartate Amino Transferase 33 U/L (14-36); Bilirubin,Total 0.4 mg/dL (0.2-1.3); Blood Urea Nitrogen 15 mg/dL (7-17); Calcium 9.1 mg/dL (8.4-10.2); Carbon Dioxide 27 mmol/L (22-30); Chloride 105 mmol/L (98-107); Estimated CRCL calculation 128 ml/min; Estimated Glomerular Filt Rate > 60; Glucose 113 mg/dL (65-110); Potassium 4.1 mmol/L (3.4-5.0); Sodium 138 mmol/L (137-145)
[2024-09-25 12:12] LABS: INR 0.9; Partial Thromboplastin Time 26.3 Seconds (22.3-36.8); Prothrombin Time 13.1 Seconds (11.1-14.7)
[2024-09-25] MEDS: KETOROLAC 30 MG/ML VIAL (*BKC) IV PUSH (12:41)
--- NOTE | 2024-09-25 13:03 | PM.IMHP ---
H&P: HPI History of Present Illness Date/Time: 09/25/24 13:03 Chief Complaint: Fall Narrative: 54 y/o F presents here with fall with PMH of urinary incontinence, chronic pain, and depression. The patient presents here with pain s/p ground level fall via EMS from home. The patient reports she was chasing her son around the house in slippers when she slipped and fell. She reports she felt a sharp pain in her left ankle and an immediate deformity/discoloration to her left ankle after the fall. She was unable to ambulate after the injury. This prompted her to call EMS. The patient endorses associated partial numbness to the affected foot that improved when ankle was reduced. Denies head strike or loss of consciousness. The patient is not on anticoagulation. Initial VS at presentation: 97.5? F, HR 67, RR 20, 138/84, and 98% on RA. ED workup showed: No leukocytosis, no anemia, normal coags, no significant electrolyte derangements, creatinine 0.43 and GFR >60. Ankle XR showed a displaced fracture of the distal aspect of the fibula and posterior inferior margin of the tibia, there is posterior and lateral displacement of the talus with respect to the tibia. Tib/fib XR showed a left ankle fracture dislocation. CXR showed no acute cardiopulmonary disease. Review of Systems Review of Systems: All systems reviewed & are unremarkable except as noted in HPI and below PMFSH Past Medical History Medical History Urinary incontinence urinary neuromodulator, 2023 Chronic pain Depression Anxiety Shingles 2019 Trimalleolar fracture of left ankle Surgical History Surgical History History of section Social History Social History Smoking packs per day: 0.5 Smoking cigarettes per day: 10.0 Years smoked: 25 Smoking pack-years: 12.50 Smoking status: Former smoker Tobacco type: cigarettes Smokeless tobacco user: chewing tobacco Second hand tobacco smoke exposure: No Additional smoking assessment comments: Has not smoked since 2003 Alcohol intake: current Drinks per week: 1 Substance use: current Substance use type: marijuana Other substance usage details: edibles/RSO sublingual and smoke Do You Feel Safe in your Home?: Yes Lack of Transportation: No Lack of Food: Never True Current Housing: I Have Housing Concerned About Future Housing: No Difficulty Paying Gas/Electric Bills: No Difficulty Paying for Meds: No Currently Unemployed: No Education: Associate Degree Difficulty w/ Childcare or Family Care: No Spiritual care concerns: No Meds Home Medications and Allergies Home Medications ?Medication ?Instructions ?Recorded ?Confirmed ?Type duloxetine 60 mg capsule,delayed 60 mg PO QHS for pain 09/25/24 09/25/24 History release famotidine 20 mg tablet 20 mg PO Q12H GERD 09/25/24 09/25/24 History lisdexamfetamine 50 mg capsule 50 mg PO PRN attention/focus 09/25/24 09/25/24 History vibegron 75 mg tablet (Gemtesa) 75 mg PO DAILY@0800 incontinence 09/25/24 09/25/24 History Allergies Allergy/AdvReac Type Severity Reaction Status Date / Time chlorhexidine AdvReac Intermediate Itching Verified 09/25/24 16:02 Vital Signs Vital Signs - 24 hr 09/25/24 10:07 09/25/24 10:46 09/25/24 12:46 Temperature 97.5 F L Pulse Rate 67 69 58 L Respiratory Rate 20 15 16 Blood Pressure 138/84 134/83 120/82 Pulse Oximetry 98 98 98 Oxygen Delivery Room Air Exam Const: General: comfortable and no acute distress Other: , female, nontoxic appearance HENMT: Face/Nose/Sinus: Normal nares present Mouth: Yes moist mucous membranes Eyes: General: appearance normal, both eyes and all related structures Sclera: sclerae normal Pupils: Equal, round and reactive pupils present EOM: EOMs intact bilaterally Resp: Effort & Inspection: normal respiratory effort Auscultation: clear to auscultation bilaterally Skin: General skin exam: normal color and no rashes or lesions noted Wounds: no wounds Neuro: Speech: normal speech Motor exam (neuro): 5/5 motor strength present throughout Other: A&O x4. Mild numbness in the left foot, otherwise no numbness in upper extremities or right lower extremity. Extrem: Other: Cast in place to left lower extremity. cap refill sluggish in the left foot, foot mildly cold. Right lower extremity normal to inspection. Psych: Mental Status: mental status grossly normal Affect: normal affect Other: Good insight and judgment, pleasant H&P: Results Labs Labs: Short CBC 09/25/24 Range/Units 11:51 WBC 4.8 (4.5-10.0) K/mm3 Hgb 14.0 (12.0-15.0) g/dL Hct 40.3 (37.0-47.0) % Plt Count 192 (150-375) k/mm3 BMP 09/25/24 11:51 Sodium 138 Potassium 4.1 Chloride 105 Carbon Dioxide 27 BUN 15 Creatinine 0.43 L Glucose 113 H Calcium 9.1 Liver Function 09/25/24 Range/Units 11:51 Total Bilirubin 0.4 (0.2-1.3) mg/dL AST 33 (14-36) U/L ALT 26 (6-35) U/L Alkaline Phosphatase 74 (38-126) U/L Albumin 4.3 (3.5-5.1) g/dL Assessment and Plan Assessment and plan (1) Trimalleolar fracture of left ankle: Qualifiers: Encounter type: initial encounter Fracture type: closed Qualified Code(s): S82.852A - Displaced trimalleolar fracture of left lower leg, initial encounter for closed fracture Code(s): S82.852A - Displaced trimalleolar fracture of left lower leg, initial encounter for closed fracture Status: Acute Assessment and Plan: - ankle XR: Displaced fractures of the distal aspect of the fibula and the posterior inferior margin of the tibia. There is posterior and lateral displacement of the talus with respect to the tibia. - tib/fib XR: Left ankle fracture dislocation. - CXR: No acute cardiopulmonary disease. - orthopedist consulted, per ED - plan for surgical management tomorrow (09/26), NPO at midnight - analgesics p.r.n. - neurovascular checks Q4h (2) Closed dislocation of ankle: Qualifiers: Encounter type: initial encounter Laterality: left Qualified Code(s): S93.05XA - Dislocation of left ankle joint, initial encounter Code(s): S93.06XA - Dislocation of unspecified ankle joint, initial encounter Status: Acute Assessment and Plan: - see tib/fib XR above - ankle XR, post-reduction: Significant decrease in now mild residual displacement of lateral and posterior malleolar fragments and successful reduction of the previously dislocated tibiotalar joint with mild residual lateral subluxation. - splint applied in ED Plan Diet: Regular GI Prophylaxis: Not currently indicated DVT Prophylaxis: hold until post surgery Lines: peripheral Code Status: full code Quality If No VTE Prophylaxis Answer both mechanical and pharmacologic: Reason no mechanical VTE proph: medical contraindication (fx) Reason no pharmacologic proph: medical contraindication (plan for OR) Hospitalist MIPS Advance Care Plan I have confirmed that the patient's Advanced Care Plan is present, code status is documented, or surrogate decision maker is listed in patient medical record.: Yes Medication Reconciliation I have utilized all available resources to obtain, update and review the patients current medications (includes all prescriptions, OTC, herbals, cannabis, and nutritional supplements).: Yes
--- NOTE | 2024-09-25 15:23 | ADMGEN ---
This patient, Teressa Linda, was admitted to [facility] Surg Room 331-01. Patient/family oriented to hospital policies and general routines including ID bracelet, bed and alarms, visiting hours, pain management, procedures, bathroom and other care routines, personal items, smoking policy, room service/diet, and visiting hours. Information on how to activate the Rapid Response Team has been discussed. Patient/Family are encouraged to report perceived risks to care and to ask questions if they do not understand what they are told or what they should do.
--- NOTE | 2024-09-25 15:43 | PM.IMHP ---
H&P: HPI History of Present Illness Date/Time: 09/25/24 15:43 Chief Complaint: Fall with left ankle injury Narrative: 54-year-old woman who slipped and fell at her home this morning. She sustained injury to her left ankle. Inability to walk an obvious deformity. She is brought by EMS to the emergency room. Due to obvious deformity of the ankle she underwent a reduction of the ankle joint, was splinted and admitted for further care. Patient denies loss of consciousness. Denies numbness or tingling. No serious problems with the ankle prior. She has had recent right ankle sprains history treated conservatively. Review of Systems Constitutional: Constitutional: Denies fever(s) Eyes: Eyes: Denies blurry vision ENT: Reports Normal hearing present Cardiovascular: Cardiovascular: Denies chest pain and Denies dyspnea Respiratory: Respiratory: Denies dyspnea and Denies wheezing Gastrointestinal: Gastrointestinal: Denies abdominal pain Genitourinary: Genitourinary: Denies urinary urgency Musculoskeletal: Musculoskeletal: Reports as per HPI and Denies numbness Integumentary/Breasts: Skin/Breast: Denies changing lesions and Denies sores Neurologic: Reports Normal hearing present, Denies behavioral changes, Denies confusion, Denies numbness and Denies convulsions Psychiatric: Psychiatric: Denies behavioral changes, Denies confusion and Denies hallucinations Endocrine: Endocrine: Denies heat intolerance Hematologic/Lymphatic: Hematologic/Lymphatic: Denies easy bleeding Allergic/Immunologic: Allergic/Immunologic: Denies wheezing PMFSH Past Medical History Medical History (Updated 09/25/24 @ 15:46 by Kendall Hanks MD) Trimalleolar fracture of left ankle Meds Home Medications and Allergies Allergies Allergy/AdvReac Type Severity Reaction Status Date / Time No Known Allergies Allergy Verified 09/25/24 10:11 Vital Signs Vital Signs - 24 hr 09/25/24 10:07 09/25/24 10:46 09/25/24 11:53 Temperature 97.5 F L Pulse Rate 67 69 61 Respiratory Rate 20 15 17 Blood Pressure 138/84 134/83 113/82 Pulse Oximetry 98 98 97 Oxygen Delivery Room Air 09/25/24 12:02 09/25/24 12:46 09/25/24 13:31 Temperature Pulse Rate 54 L 58 L 56 L Respiratory Rate 15 16 15 Blood Pressure 121/64 120/82 120/88 Pulse Oximetry 99 98 97 Oxygen Delivery 09/25/24 14:00 Temperature Pulse Rate 48 L Respiratory Rate 16 Blood Pressure Pulse Oximetry 91 Oxygen Delivery H&P: Results Labs Labs: Short CBC 09/25/24 Range/Units 11:51 WBC 4.8 (4.5-10.0) K/mm3 Hgb 14.0 (12.0-15.0) g/dL Hct 40.3 (37.0-47.0) % Plt Count 192 (150-375) k/mm3 BMP 09/25/24 11:51 Sodium 138 Potassium 4.1 Chloride 105 Carbon Dioxide 27 BUN 15 Creatinine 0.43 L Glucose 113 H Calcium 9.1 Liver Function 09/25/24 Range/Units 11:51 Total Bilirubin 0.4 (0.2-1.3) mg/dL AST 33 (14-36) U/L ALT 26 (6-35) U/L Alkaline Phosphatase 74 (38-126) U/L Albumin 4.3 (3.5-5.1) g/dL Imaging Ankle x-ray: My impression: left ankle radiographs show trimalleolar fracture with dislocation. Post reduction films show reduction of the ankle mortise and splint material. Assessment and Plan Assessment and plan (1) Trimalleolar fracture of left ankle: Qualifiers: Encounter type: initial encounter Fracture type: closed Qualified Code(s): S82.852A - Displaced trimalleolar fracture of left lower leg, initial encounter for closed fracture Code(s): S82.852A - Displaced trimalleolar fracture of left lower leg, initial encounter for closed fracture Status: Acute Assessment and Plan: 54-year-old woman with fall at home this morning. Fracture dislocation of left ankle. Adequately reduced in the emergency room and splinted. Admitted for further care. We discussed treatment options. She would like to proceed with surgical treatment. (2) Closed dislocation of ankle: Qualifiers: Encounter type: initial encounter Laterality: left Qualified Code(s): S93.05XA - Dislocation of left ankle joint, initial encounter Code(s): S93.06XA - Dislocation of unspecified ankle joint, initial encounter Status: Acute Plan Discussed nonoperative and operative treatment options with the patient. Risks and benefits of each as well as alternatives were reviewed. All of the patient's questions were answered. The risks of surgery reviewed including but not limited to: Neurovascular damage, wound complication, infection, blood clot, pulmonary embolus, stroke, myocardial infarction, and anesthetic risks up to and including . Continued pain and possible dysfunction were explained. Specific risks of the procedure including later recurrence of deformity. No guarantees were offered. If hardware used, discussed risk of failure/ breakage and possible need for removal. If complications occur, the patient understands the need for further treatment, possible further surgery. Patient verbalizes understanding and wishes to proceed. PLAN: Open reduction internal fixation left ankle fracture.
[2024-09-25] MEDS: ACETAMINOPHEN 325 MG TABLET 650 MG PO (19:51)
[2024-09-25] MEDS: DULoxetine HCL 60 MG CAPSULE.DR PO (19:58)
[2024-09-25] MEDS: FAMOTIDINE 20 MG TABLET PO (19:58)
[2024-09-26] VITALS (16 sets, daily range): BP systolic 97–154; BP diastolic 57–108; PULSE 58–85; RESP 9–22; TEMP 36.1–36.9; O2SAT 93–100
[2024-09-26] MEDS: HYDROmorphone HCL INJ (*CRX) 1 MG/ML SYR 0.5 MG IV PUSH ×5 (00:02→14:58)
[2024-09-26] MEDS: ACETAMINOPHEN 325 MG TABLET 650 MG PO ×2 (00:03→07:56)
[2024-09-26 06:54] LABS: Basophils Percent Auto 0.3 % (0.2-1.2); Eosinophils Absolute Auto 0.1 K/mm3 (0-0.3); Eosinophils Percent Auto 1.5 % (0-4.4); Hematocrit 38.3 % (37.0-47.0); Hemoglobin 13.2 g/dL (12.0-15.0); Immature Granulocyte Absolute 0.02 K/mm3 (0.00-0.031); Immature Granulocyte Percent A 0.3 % (0-0.5); Lymphocytes Absolute Auto 1.64 K/mm3 (0.9-3.2); Lymphocytes Percent Auto 26.8 % (18.3-44.2); Mean Corpuscular HGB Conc 34.5 g/dl (32-36); Mean Corpuscular Hemoglobin 32.1 pg (26-34); Mean Corpuscular Volume 93.2 fl (80-100); Mean Platelet Volume 9.5 fl (7.4-10.4); Monocytes Absolute Auto 0.5 K/mm3 (0.1-0.6); Monocytes Percent Auto 8.2 % (2.6-8.5); Neutrophils Absolute Auto 3.9 K/mm3 (1.3-6.7); Neutrophils Percent Auto 62.9 % (45.5-73.1); Platelet Count Result 176 k/mm3 (150-375); Red Blood Count 4.11 M/mm3 (4.2-5.4); Red Cell Distribution Width 12.9 % (11.5-14.5); White Blood Count 6.1 K/mm3 (4.5-10.0)
[2024-09-26 07:17] LABS: Anion Gap 5 mmol/L (4-12); Blood Urea Nitrogen 14 mg/dL (7-17); Calcium 9.2 mg/dL (8.4-10.2); Carbon Dioxide 29 mmol/L (22-30); Chloride 106 mmol/L (98-107); Estimated CRCL calculation 102 ml/min; Estimated Glomerular Filt Rate > 60; Glucose 92 mg/dL (65-110); Potassium 3.9 mmol/L (3.4-5.0); Sodium 140 mmol/L (137-145)
[2024-09-26 07:45] LABS: Hemoglobin A1C 5.3 % (<5.7)
[2024-09-26] MEDS: FAMOTIDINE 20 MG TABLET PO ×2 (08:00→21:54)
--- NOTE | 2024-09-26 08:30 | WPDHPUPDATE1 ---
History and Physical Update Update Date/Time: 09/26/24 08:30 History and Physical has been reviewed, including an updated exam of the patient. There are NO changes in the patient's condition. Risks, benefits, and alternatives have been discussed and questions answered. Patient agrees to proceed with procedure.
[2024-09-26] MEDS: KETOROLAC 15 MG/ML VIAL (*BKC) IV PUSH (08:57)
--- NOTE | 2024-09-26 08:57 | WPDANESEPPF ---
Anes - Initial Pre Proc Eval Procedure: Operation Date: 09/26/24 09:30 Proposed Procedures p Open Reduction Internal Fixation Left Ankle - Kendall Marco Hanks MD Date/Time: 09/26/24 08:57 Surgeon: Talat Sapp MD Pre Op Diagnosis: L Bimalleolar Fx Ankle Dislocation Patient Data Age: 54 Gender: F Height: 1.55 m Weight: 88.4 kg Last Vital Signs Temp 36.2 C L 09/26/24 04:59 Pulse 80 09/26/24 04:59 Resp 16 09/26/24 04:59 BP 104/63 09/26/24 05:00 Pulse Ox 98 09/26/24 04:59 O2 Del Method Room Air 09/25/24 10:07 Allergies Allergy/AdvReac Type Severity Reaction Status Date / Time chlorhexidine AdvReac Intermediate Itching Verified 09/25/24 16:02 ketorolac (From Toradol) AdvReac Intermediate blotchy, Unverified 09/26/24 05:39 red, hot skin Home Medications ?Medication ?Instructions ?Recorded ?Confirmed ?Type duloxetine 60 mg capsule,delayed 60 mg PO QHS for pain 09/25/24 09/25/24 History release famotidine 20 mg tablet 20 mg PO Q12H GERD 09/25/24 09/25/24 History lisdexamfetamine 50 mg capsule 50 mg PO PRN attention/focus 09/25/24 09/25/24 History vibegron 75 mg tablet (Gemtesa) 75 mg PO DAILY@0800 incontinence 09/25/24 09/25/24 History Laboratory Tests 09/25/24 09/26/24 11:51 06:23 WBC 4.8 K/mm3 6.1 K/mm3 (4.5-10.0) (4.5-10.0) RBC 4.41 M/mm3 4.11 L M/mm3 (4.2-5.4) (4.2-5.4) Hgb 14.0 g/dL 13.2 g/dL (12.0-15.0) (12.0-15.0) Hct 40.3 % 38.3 % (37.0-47.0) (37.0-47.0) MCV 91.4 fl 93.2 fl (80-100) (80-100) MCH 31.7 pg 32.1 pg (26-34) (26-34) MCHC 34.7 g/dl 34.5 g/dl (32-36) (32-36) RDW 12.6 % 12.9 % (11.5-14.5) (11.5-14.5) Plt Count 192 k/mm3 176 k/mm3 (150-375) (150-375) MPV 9.3 fl 9.5 fl (7.4-10.4) (7.4-10.4) Immature Gran % (Auto) 0.2 % 0.3 % (0-0.5) (0-0.5) Neut % (Auto) 69.5 % 62.9 % (45.5-73.1) (45.5-73.1) Lymph % (Auto) 23.9 % 26.8 % (18.3-44.2) (18.3-44.2) [place] % (Auto) 5.4 % 8.2 % (2.6-8.5) (2.6-8.5) Eos % (Auto) 0.4 % 1.5 % (0-4.4) (0-4.4) Baso % (Auto) 0.6 % 0.3 % (0.2-1.2) (0.2-1.2) Lymph # (Auto) 1.15 K/mm3 1.64 K/mm3 (0.9-3.2) (0.9-3.2) [place] # (Auto) 0.3 K/mm3 0.5 K/mm3 (0.1-0.6) (0.1-0.6) Eos # (Auto) 0.0 K/mm3 0.1 K/mm3 (0-0.3) (0-0.3) Baso # (Auto) 0.0 K/mm3 0.0 K/mm3 (0.0-0.1) (0.0-0.1) Abs Immat Gran (auto) 0.01 K/mm3 0.02 K/mm3 (0.00-0.031) (0.00-0.031) Absolute Neuts (auto) 3.4 K/mm3 3.9 K/mm3 (1.3-6.7) (1.3-6.7) Absolute Nucleated RBC 0.000 K/mm3 0.000 K/mm3 (0.0-0.012) (0.0-0.012) Nucleated RBC % 0.0 % 0.0 % (0.0-0.2) (0.0-0.2) PT 13.1 Seconds (11.1-14.7) INR 0.9 APTT 26.3 Seconds (22.3-36.8) Sodium 138 mmol/L 140 mmol/L (137-145) (137-145) Potassium 4.1 mmol/L 3.9 mmol/L (3.4-5.0) (3.4-5.0) Chloride 105 mmol/L 106 mmol/L (98-107) (98-107) Carbon Dioxide 27 mmol/L 29 mmol/L (22-30) (22-30) Anion Gap 6 mmol/L 5 mmol/L (4-12) (4-12) BUN 15 mg/dL 14 mg/dL (7-17) (7-17) Creatinine 0.43 L mg/dL 0.53 L mg/dL (0.7-1.0) (0.7-1.0) Estim Creat Clear Calc 128 ml/min 102 ml/min Estimated GFR > 60 > 60 (59 - ) (59 - ) Glucose 113 H mg/dL 92 mg/dL (65-110) (65-110) Hemoglobin A1c 5.3 % (<5.7) Calcium 9.1 mg/dL 9.2 mg/dL (8.4-10.2) (8.4-10.2) Total Bilirubin 0.4 mg/dL (0.2-1.3) AST 33 U/L (14-36) ALT 26 U/L (6-35) Alkaline Phosphatase 74 U/L (38-126) Total Protein 7.0 g/dL (6.3-8.2) Albumin 4.3 g/dL (3.5-5.1) Patient hx anesthesia problems: none Family hx anesthesia problems: none Results Review: All pre-operative results and documents have been reviewed as part of the pre-operative evaluation. [facility] Past Medical History Medical History Urinary incontinence urinary neuromodulator, 2023 Chronic pain Depression Anxiety Shingles 2019 Trimalleolar fracture of left ankle Surgical History Surgical History History of section Social History Social History Smoking packs per day: 0.5 Smoking cigarettes per day: 10.0 Years smoked: 25 Smoking pack-years: 12.50 Smoking status: Former smoker Tobacco type: cigarettes Smokeless tobacco user: chewing tobacco Second hand tobacco smoke exposure: No Additional smoking assessment comments: Has not smoked since 2003 Alcohol intake: current Drinks per week: 1 Substance use: current Substance use type: marijuana Other substance usage details: edibles/RSO sublingual and smoke Do You Feel Safe in your Home?: Yes Lack of Transportation: No Lack of Food: Never True Current Housing: I Have Housing Concerned About Future Housing: No Difficulty Paying Gas/Electric Bills: No Difficulty Paying for Meds: No Currently Unemployed: No Education: Associate Degree Difficulty w/ Childcare or Family Care: No Spiritual care concerns: No Anes - Eval Final PreProcedure Day of Procedure 09/26/24 08:57 Patient weight: obese Heart: regular rate and rhythm Lungs: clear to auscultation Airway: Mallampati scale class 1 Neurological: alert and oriented ASA classification: III Emergent: no Anesthetic plan: proceed Anesthesia type and monitoring: general LMA and standard monitoring Results Review: All pre-operative results and documents have been reviewed as part of the pre-operative evaluation. Informed Consent: The patient's anesthetic plan and its attendant risks and benefits were discussed with the patient/family/POA. Questions were solicited and answers provided to the satisfaction of the patient/family/POA.
[2024-09-26] MEDS: LACTATED RINGERS 1,000 ML 30 ML IV CONT (09:00)
[2024-09-26] MEDS: ceFAZolin 2 GM/D5W 50 ML 2 GM/50 ML BAG IVPB ×2 (09:25→16:56)
--- NOTE | 2024-09-26 09:26 | PM.IMPN ---
Progress Note: A&P Assessment and Plan (1) Trimalleolar fracture of left ankle: Qualifiers: Encounter type: initial encounter Fracture type: closed Qualified Code(s): S82.852A - Displaced trimalleolar fracture of left lower leg, initial encounter for closed fracture Code(s): S82.852A - Displaced trimalleolar fracture of left lower leg, initial encounter for closed fracture Status: Acute Assessment and Plan: - ankle XR: Displaced fractures of the distal aspect of the fibula and the posterior inferior margin of the tibia. There is posterior and lateral displacement of the talus with respect to the tibia. - tib/fib XR: Left ankle fracture dislocation. - CXR: No acute cardiopulmonary disease. - orthopedist consulted, per ED - plan for surgical management tomorrow (09/26), NPO at midnight - analgesics p.r.n. - neurovascular checks Q4h 09/26/2024 Stable exam. schedule surgery today. (2) Closed dislocation of ankle: Qualifiers: Encounter type: initial encounter Laterality: left Qualified Code(s): S93.05XA - Dislocation of left ankle joint, initial encounter Code(s): S93.06XA - Dislocation of unspecified ankle joint, initial encounter Status: Acute Assessment and Plan: - see tib/fib XR above - ankle XR, post-reduction: Significant decrease in now mild residual displacement of lateral and posterior malleolar fragments and successful reduction of the previously dislocated tibiotalar joint with mild residual lateral subluxation. - splint applied in ED Plan Diet: NPO, schedule surgery today. GI Prophylaxis: Not currently indicated DVT Prophylaxis: hold until post surgery Lines: peripheral Code Status: full code Subjective Date/time seen: 09/26/24 09:26 Interval history: Patient was seen during the morning rounds today. Patient is scheduled for surgery. No overnight complaints. No shortness of breath or chest pain. Review of Systems Review of Systems: All systems reviewed & are unremarkable except as noted in HPI and below Exam Const: General: comfortable and no acute distress Other: , female, nontoxic appearance HENMT: Face/Nose/Sinus: Normal nares present Mouth: Yes moist mucous membranes Eyes: General: appearance normal, both eyes and all related structures Sclera: sclerae normal Pupils: Equal, round and reactive pupils present EOM: EOMs intact bilaterally Resp: Effort & Inspection: normal respiratory effort Auscultation: clear to auscultation bilaterally Skin: General skin exam: normal color and no rashes or lesions noted Wounds: no wounds Neuro: Cranial nerves: Yes Equal, round and reactive pupils present Speech: normal speech Motor exam (neuro): 5/5 motor strength present throughout Other: A&O x4. Mild numbness in the left foot, otherwise no numbness in upper extremities or right lower extremity. Extrem: Other: Cast in place to left lower extremity. cap refill sluggish in the left foot, foot mildly cold. Right lower extremity normal to inspection. Psych: Mental Status: mental status grossly normal Affect: normal affect Other: Good insight and judgment, pleasant Objective Data Vital Signs Vital Signs: Vital Signs - 24 hr 09/25/24 10:07 09/25/24 10:46 09/25/24 11:53 Temperature 36.4 C L Pulse Rate 67 69 61 Respiratory Rate 20 15 17 Blood Pressure 138/84 134/83 113/82 Pulse Oximetry 98 98 97 Oxygen Delivery Room Air 09/25/24 12:02 09/25/24 12:46 09/25/24 13:31 Temperature Pulse Rate 54 L 58 L 56 L Respiratory Rate 15 16 15 Blood Pressure 121/64 120/82 120/88 Pulse Oximetry 99 98 97 Oxygen Delivery 09/25/24 14:00 09/25/24 19:53 09/26/24 04:59 Temperature 36.3 C L 36.2 C L Pulse Rate 48 L 56 L 80 Respiratory Rate 16 16 16 Blood Pressure 116/66 97/67 L Pulse Oximetry 91 99 98 Oxygen Delivery 09/26/24 05:00 09/26/24 08:19 Temperature 36.3 C L Pulse Rate 58 L Respiratory Rate 20 Blood Pressure 104/63 132/78 Pulse Oximetry 98 Oxygen Delivery Room Air Intake/Output Intake/Output: Intake & Output 09/23/24 09/24/24 09/25/24 09/26/24 23:59 23:59 23:59 23:59 Intake Total 480 550 Output Total 340 Balance 480 210 Meds/Results Medications: Active Medications Generic Name Dose Route Start Last Admin Trade Name Freq PRN Reason Stop Dose Admin Acetaminophen 650 mg 09/25/24 13:15 09/26/24 07:56 Acetaminophen 325 Mg Tablet PO 650 mg Q4H PRN Administration Mild Pain (1-3) or Fever Dextrose 12.5 gm 09/25/24 13:15 Dextrose 50% 25 Gm/50 Ml Syringe IV PUSH PRN PRN Hypoglycemia Protocol Duloxetine HCl 60 mg 09/25/24 21:00 09/25/24 19:58 Duloxetine Hcl 60 Mg Capsule.Dr PO 60 mg QHS ELIECER Administration Famotidine 20 mg 09/25/24 21:00 09/26/24 08:00 Famotidine 20 Mg Tablet PO 20 mg Q12HR ELIECER Administration Fentanyl Citrate 25 mcg 09/26/24 08:59 Fentanyl Citrate Inj (*Crx) 100 Mcg/2 Ml Vial IV PUSH Q2M PRN Pain Glucagon 1 mg 09/25/24 13:15 Glucagon For Inj 1 Mg Vial IM PRN PRN Hypoglycemia Protocol Glucose 15 gm 09/25/24 13:15 Glucose Oral Gel 15 Gm Of Glucse In 37.5 Gm Tube PO PRN PRN Hypoglycemia Protocol Hydromorphone HCl 0.5 mg 09/25/24 13:15 09/26/24 07:57 Hydromorphone Hcl Inj (*Crx) 1 Mg/Ml Syr IV PUSH 0.5 mg Q4H PRN Administration Pain Rated 7-10 Dextrose 1,000 mls @ 100 mls/hr 09/25/24 13:15 Dextrose 5% 1,000 Ml IVPB PRN PRN Hypoglycemia Protocol Lactated Ringer's 1,000 mls @ 30 mls/hr 09/26/24 09:00 Lr - Lactated Ringers Iv IV CONT .Q24H ELIECER Lactated Ringer's 1,000 mls @ 30 mls/hr 09/26/24 09:00 Lr - Lactated Ringers Iv IV CONT .Q24H [facility] Ketorolac Tromethamine 30 mg 09/25/24 13:15 Ketorolac 30 Mg/Ml Vial (*Bkc) IV PUSH 09/30/24 13:14 Q6H PRN Pain Rated 4-6 Miscellaneous Information 0 each 09/26/24 06:05 Ketorolac- New Allergy Entered. Please Clarify If Toradol Should Be Stopped. XX 10/26/24 06:04 CLARIFY ELIECER Ondansetron HCl 4 mg 09/25/24 13:15 Ondansetron Inj 4 Mg/2 Ml Vial IV PUSH Q4H PRN Nausea Ondansetron HCl 4 mg 09/26/24 08:59 Ondansetron Inj 4 Mg/2 Ml Vial IV PUSH ONCE PRN Nausea Radiology Results: ITS Impressions Tibia/Fibula X-Ray 09/25/24 10:26 IMPRESSION: 1. Left ankle fracture dislocation. Ankle X-Ray 09/25/24 11:03 IMPRESSION: 1. Significant decrease in now mild residual displacement of lateral and posterior malleolar fragments and successful reduction of the previously dislocated tibiotalar joint with mild residual lateral subluxation. Chest X-Ray 09/25/24 11:55 IMPRESSION: 1: NO ACUTE CARDIOPULMONARY DISEASE. Labs Labs: Laboratory Results - last 24 hr 09/25/24 09/26/24 11:51 06:23 WBC 4.8 6.1 RBC 4.41 4.11 L Hgb 14.0 13.2 Hct 40.3 38.3 MCV 91.4 93.2 MCH 31.7 32.1 MCHC 34.7 34.5 RDW 12.6 12.9 Plt Count 192 176 MPV 9.3 9.5 Immature Gran % (Auto) 0.2 0.3 Neut % (Auto) 69.5 62.9 Lymph % (Auto) 23.9 26.8 [place] % (Auto) 5.4 8.2 Eos % (Auto) 0.4 1.5 Baso % (Auto) 0.6 0.3 Lymph # (Auto) 1.15 1.64 [place] # (Auto) 0.3 0.5 Eos # (Auto) 0.0 0.1 Baso # (Auto) 0.0 0.0 Abs Immat Gran (auto) 0.01 0.02 Absolute Neuts (auto) 3.4 3.9 Absolute Nucleated RBC 0.000 0.000 Nucleated RBC % 0.0 0.0 PT 13.1 INR 0.9 APTT 26.3 Sodium 138 140 Potassium 4.1 3.9 Chloride 105 106 Carbon Dioxide 27 29 Anion Gap 6 5 BUN 15 14 Creatinine 0.43 L 0.53 L Estim Creat Clear Calc 128 102 Estimated GFR > 60 > 60 Glucose 113 H 92 Hemoglobin A1c 5.3 Calcium 9.1 9.2 Total Bilirubin 0.4 AST 33 ALT 26 Alkaline Phosphatase 74 Total Protein 7.0 Albumin 4.3
[2024-09-26] MEDS: BUPIVACAINE/EPINEPHRINE 0.5% 30 ML VIAL INFILTRATE (09:46)
--- NOTE | 2024-09-26 12:00 | P.OP_ITS ---
Procedure Note - Detailed Date of Procedure 09/26/24 Pre-op Diagnosis L Trimalleolar Fx Ankle Dislocation with syndesmosis disruption posterior malleolus fracture Post-op Diagnosis Same Procedure Performed Open reduction internal fixation left ankle trimalleolar fracture with fixation posterior lip; open reduction internal fixation syndesmosis disruption left ankle. Surgeon Kendall Hanks MD [employer] 1st administrative personal assistant Anesthesia General Indications 54-year-old woman who fell and sustained a left ankle fracture dislocation. Reduced in the emergency room and admitted to the hospital. Brought now to the operating room for open reduction internal fixation of the left ankle. Findings Instability of the ankle mortise with posterior malleolus fracture segmental distal fibula fracture. Syndesmosis disruption. Description of Procedure After informed consent, the operative extremity was marked in the preoperative holding area. Patient received intravenous antibiotics. Patient was then taken to the operating room and underwent general anesthesia by the anesthesia team. Positioned supine on the operating room table with a soft bump under the ipsilateral hip. A time-out was performed confirming the patient, site of the surgery, operative plan. Left Lower extremity then prepped and draped in the usual sterile surgical fashion using DuraPrep skin solution. Foot and ankle exsanguinated and a thigh tourniquet inflated to 250 mmHg. Longitudinal incision made over the lateral ankle distal fibula with a 15 blade knife. Hemostasis controlled with electrocautery. Full-thickness soft tissue flaps developed and the fascia was incised in line with the skin incision. Fracture identified and cleared with a dental pick, irrigation and rongeur. The distal fibular fracture was noted to large segmental piece approximately 4 cm in length. The elevated fracture fragment anteriorly keeping the soft tissue attachments to the fragment. This allowed window to through to address post erior malleolus fracture. Posterior malleolus fracture cleared with dental pick, rongeur irrigation. The articular surface the talus had mild posttraumatic scuff doherty on the mid and posterior aspect. We reduced the fracture fragment held this with a bone pulling clamp. Image intensification confirmed reduction. Fixation achieved 4 point partially-threaded cannulated screws placed percutaneously anterior posterior. Radiographs show well- maintained alignment position of the hardware. We then returned to the fibular fracture. Fracture reduced and held with bone- holding clamp. Image intensification confirmed reduction of the fracture and the ankle mortise. Fixation achieved with lateral plate with unicortical screws distal to fracture and bicortical screws proximal to the fracture. Good alignment and stability of the fracture noted. Image intensification used to confirm reduction of the fracture and placement of the hardware. Syndesmosis was then addressed. Dissection anterior to the fibula allowed visualization of the syndesmosis which was reduced and held with a clamp. Fixation achieved from lateral to medial with the Arthrex syndesmosis tight rope fixation system. Drill hole placed through the fibular plate and across the tibia. Tight rope then passed and secured on the medial side. With the ankle in neutral dorsiflexion position tight rope was then secured. Image intensification confirmed reduction of ankle mortise and syndesmosis, placement of the hardware. Stress of the ankle performed with good stability of the ankle mortise and syndesmosis in all directions. Posterior malleolus noted to be reduced and stable. Wound thoroughly irrigated with solution. Fascia repaired with 00 Vicryl interrupted suture. Subcutaneous tissue repaired with 000 Monocryl interrupted suture and Skin approximated with randi. Sterile dressings applied followed by bulky dressing and splint. Patient awoken from anesthesia, extubated and taken to the recovery room in stable condition. All sponge, needle and instrument counts correct at the end of the case. Palpable dorsalis pedis pulse noted prior to dressing. Implants Arthrex distal fibula plate and screws, Arthrex syndesmosis tightrope system, 4.0 mm cannulated screw x2 Estimated Blood Loss 20 Tourniquet Time Total Tourniquet Time: 93 Urine Output 340 Drains No Packing No Pathology None sent Complications None Condition Stable Disposition PACU [facility] Billing Surgery - Charge Forward: Surgery Billing ([id number])
[2024-09-26] MEDS: fentaNYL CITRATE INJ (*CRX) 100 MCG/2 ML VIAL 25 MCG IV PUSH ×8 (12:03→12:35)
[2024-09-26] MEDS: KCL 20 MEQ/D5/0.45% SOD CHL 1,000 ML 80 ML IV CONT (13:20)
[2024-09-26] MEDS: HYDROcodone/acetaminophen (*CRX) 7.5-325 MG TABLET 1 TAB PO ×2 (14:57→21:57)
[2024-09-26] MEDS: SENNA/DOCUSATE SODIUM TABLET 2 TAB PO (16:56)
[2024-09-26] MEDS: ASPIRIN 81 MG ENTERIC TABLET PO (21:54)
[2024-09-26] MEDS: DULoxetine HCL 60 MG CAPSULE.DR PO (21:54)
[2024-09-27] MEDS: ceFAZolin 2 GM/D5W 50 ML 2 GM/50 ML BAG IVPB ×3 (00:30→18:25)
[2024-09-27] MEDS: KETOROLAC 30 MG/ML VIAL (*BKC) IV PUSH ×2 (04:50→18:24)
[2024-09-27] MEDS: HYDROcodone/acetaminophen (*CRX) 7.5-325 MG TABLET 1 TAB PO ×4 (04:50→21:46)
[2024-09-27 05:34] VITALS: BP 126/78; PULSE 68; RESP 14; TEMP 36.5; O2SAT 96
[2024-09-27 06:57] LABS: Hematocrit 38.9 % (37.0-47.0); Hemoglobin 13.1 g/dL (12.0-15.0); Mean Corpuscular HGB Conc 33.7 g/dl (32-36); Mean Corpuscular Volume 95.1 fl (80-100); Mean Platelet Volume 9.6 fl (7.4-10.4); Platelet Count Result 179 k/mm3 (150-375); Red Blood Count 4.09 M/mm3 (4.2-5.4); Red Cell Distribution Width 12.8 % (11.5-14.5); White Blood Count 8.5 K/mm3 (4.5-10.0)
[2024-09-27 07:06] LABS: Alanine Aminotransferase 20 U/L (6-35); Albumin Level 3.8 g/dL (3.5-5.1); Alkaline Phosphatase 64 U/L (38-126); Anion Gap 4 mmol/L (4-12); Aspartate Amino Transferase 28 U/L (14-36); Bilirubin,Total 0.5 mg/dL (0.2-1.3); Blood Urea Nitrogen 8 mg/dL (7-17); Calcium 8.8 mg/dL (8.4-10.2); Carbon Dioxide 32 mmol/L (22-30); Chloride 104 mmol/L (98-107); Estimated CRCL calculation 107 ml/min; Estimated Glomerular Filt Rate > 60; Glucose 98 mg/dL (65-110); Potassium 3.7 mmol/L (3.4-5.0); Sodium 140 mmol/L (137-145)
--- NOTE | 2024-09-27 07:29 | WPDANESPN ---
Anes - Prog Note Post-Op Date/Time: 09/27/24 07:29 Cardiovascular status: normal Respiratory status: normal Airway patency: baseline Mental status: baseline Post-Op hydration status: normal Vital Signs: Last Vital Signs Temp 36.5 C 09/27/24 05:34 Pulse 68 09/27/24 05:34 Resp 14 09/27/24 05:34 BP 126/78 09/27/24 05:34 Pulse Ox 96 09/27/24 05:34 O2 Del Method Room Air 09/26/24 20:00 O2 Flow Rate 8 09/26/24 11:59 Pain Score (VAS): 1 I/O: Intake & Output 09/26/24 09/26/24 09/27/24 15:59 23:59 07:59 Intake Total 350 290 600 Output Total 340 400 Balance 10 -110 600 Laboratory Tests 09/27/24 06:05 09/27/24 06:05 09/26/24 09/27/24 06:23 06:05 WBC 8.5 RBC 4.09 L Hgb 13.1 Hct 38.9 MCV 95.1 MCH 32.0 MCHC 33.7 RDW 12.8 Plt Count 179 MPV 9.6 Sodium 140 Potassium 3.7 Chloride 104 Carbon Dioxide 32 H Anion Gap 4 BUN 8 D Creatinine 0.50 L Estim Creat Clear Calc 107 Estimated GFR > 60 Glucose 98 Hemoglobin A1c 5.3 Calcium 8.8 Total Bilirubin 0.5 AST 28 ALT 20 Alkaline Phosphatase 64 Total Protein 7.0 Albumin 3.8 Post-procedural complaints: none Patient Feedback: Patient satisfied with anesthetic care.
--- NOTE | 2024-09-27 08:59 | PM.IMPN ---
Progress Note: A&P Assessment and Plan (1) Trimalleolar fracture of left ankle: Qualifiers: Encounter type: initial encounter Fracture type: closed Qualified Code(s): S82.852A - Displaced trimalleolar fracture of left lower leg, initial encounter for closed fracture Code(s): S82.852A - Displaced trimalleolar fracture of left lower leg, initial encounter for closed fracture Status: Acute Assessment and Plan: ankle XR: Displaced fractures of the distal aspect of the fibula and the posterior inferior margin of the tibia. There is posterior and lateral displacement of the talus with respect to the tibia. - tib/fib XR: Left ankle fracture dislocation. - CXR: No acute cardiopulmonary disease. - orthopedist consulted, per ED - plan for surgical management tomorrow (09/26), NPO at midnight - analgesics p.r.n. - neurovascular checks Q4h 09/26/2024 Stable exam. schedule surgery 09/27 S/P pen reduction internal fixation left ankle trimalleolar fracture with fixation posterior lip; open reduction internal fixation syndesmosis disruption left ankle. D1 Continue pain management (2) Closed dislocation of ankle: Qualifiers: Encounter type: initial encounter Laterality: left Qualified Code(s): S93.05XA - Dislocation of left ankle joint, initial encounter Code(s): S93.06XA - Dislocation of unspecified ankle joint, initial encounter Status: Acute Assessment and Plan: - see tib/fib XR above - ankle XR, post-reduction: Significant decrease in now mild residual displacement of lateral and posterior malleolar fragments and successful reduction of the previously dislocated tibiotalar joint with mild residual lateral subluxation. - splint applied in ED Plan Diet: NPO, schedule surgery today. GI Prophylaxis: Not currently indicated DVT Prophylaxis: hold until post surgery Lines: peripheral Code Status: full code Subjective Date/time seen: 09/27/24 08:59 Interval history: Patient is afebrile, blood pressure stable, no O2 desaturation on room air, postop day 1 No overnight complaints. Patient denies headache, focal weakness, chest pain, shortness breast, abdomen pain, nausea vomiting. Patient passed gas. Patient feel warm of right lower extremity Exam Narrative: GENERAL: Pleasant, in no acute distress. Well-nourished. - EYES: EOMI. Anicteric. - HENT: Moist mucous membranes. - LUNGS: Clear to auscultation bilaterally, no wheezing, rhonchi, or rales. - CARDIOVASCULAR: Regular rate and rhythm. No murmur. No JVD. - ABDOMEN: Soft, non-tender and non-distended. No palpable masses. - EXTREMITIES: No edema. Peripheral pulses 2+. Non-tender. Restricted movement of left leg because of pain - NEUROLOGIC: No focal neurological deficits. CN II-XII grossly intact. - PSYCHIATRIC: Awake, Alert and oriented x 3. Appropriate mood and affect. - SKIN: No rashes or lesions. Warm. - LYMPH: No cervical lymphadenopathy. Objective Data Vital Signs Vital Signs: Vital Signs - 24 hr 09/26/24 11:44 09/26/24 11:59 09/26/24 12:14 Temperature 97.5 F L Pulse Rate 81 84 83 Respiratory Rate 16 13 12 Blood Pressure 129/81 129/78 123/78 Pulse Oximetry 100 100 97 Oxygen Delivery Simple Face Mask Simple Face Mask Room Air Oxygen Flow Rate 10 8 09/26/24 12:29 09/26/24 12:44 09/26/24 12:59 Temperature Pulse Rate 75 66 65 Respiratory Rate 22 H 9 L 11 L Blood Pressure 118/75 119/66 113/65 Pulse Oximetry 97 97 98 Oxygen Delivery Room Air Room Air Room Air Oxygen Flow Rate 09/26/24 13:03 09/26/24 13:18 09/26/24 13:48 Temperature 97.0 F L 97.8 F 97.5 F L Pulse Rate 77 78 66 Respiratory Rate 18 20 20 Blood Pressure 125/85 147/85 H 154/57 H Pulse Oximetry 93 96 97 Oxygen Delivery Oxygen Flow Rate 09/26/24 14:48 09/26/24 18:48 09/26/24 20:00 Temperature 98.5 F 97.5 F L Pulse Rate 62 59 L Respiratory Rate 20 18 Blood Pressure 117/75 115/80 Pulse Oximetry 95 94 Oxygen Delivery Room Air Oxygen Flow Rate 09/26/24 21:20 09/27/24 05:34 Temperature 97.9 F 97.7 F Pulse Rate 60 68 Respiratory Rate 18 14 Blood Pressure 123/75 126/78 Pulse Oximetry 96 96 Oxygen Delivery Oxygen Flow Rate Intake/Output Intake/Output: Intake & Output 09/24/24 09/25/24 09/26/24 09/27/24 23:59 23:59 23:59 23:59 Intake Total 480 1190 600 Output Total 1080 Balance 480 110 600 Meds/Results Medications: Active Medications Generic Name Dose Route Start Last Admin Trade Name Steve PRN Reason Stop Dose Admin Acetaminophen 650 mg 09/25/24 13:15 09/26/24 07:56 Acetaminophen 325 Mg Tablet PO 650 mg Q4H PRN Administration Mild Pain (1-3) or Fever Hydrocodone Bitart/Acetaminophen 1 tab 09/26/24 14:28 09/27/24 04:50 Hydrocodone/Acetaminophen (*Crx) 7.5-325 Mg Tablet PO 1 tab Q4H PRN Administration Pain Rated 4-6 Aspirin 81 mg 09/26/24 21:00 09/26/24 21:54 Aspirin 81 Mg Enteric Tablet PO 81 mg Q12HR ELIECER Administration Cyclobenzaprine HCl 10 mg 09/26/24 13:03 Cyclobenzaprine Hcl 10 Mg Tablet PO Q8H PRN Muscle Spasm Dextrose 12.5 gm 09/25/24 13:15 Dextrose 50% 25 Gm/50 Ml Syringe IV PUSH PRN PRN Hypoglycemia Protocol Duloxetine HCl 60 mg 09/25/24 21:00 09/26/24 21:54 Duloxetine Hcl 60 Mg Capsule.Dr PO 60 mg QHS ELIECER Administration Famotidine 20 mg 09/25/24 21:00 09/26/24 21:54 Famotidine 20 Mg Tablet PO 20 mg Q12HR ELIECER Administration Glucagon 1 mg 09/25/24 13:15 Glucagon For Inj 1 Mg Vial IM PRN PRN Hypoglycemia Protocol Glucose 15 gm 09/25/24 13:15 Glucose Oral Gel 15 Gm Of Glucse In 37.5 Gm Tube PO PRN PRN Hypoglycemia Protocol Hydromorphone HCl 0.5 mg 09/26/24 14:45 Hydromorphone Hcl Inj (*Crx) 1 Mg/Ml Syr IV PUSH Q2-3H PRN Pain Rated 7-10 Dextrose 1,000 mls @ 100 mls/hr 09/25/24 13:15 Dextrose 5% 1,000 Ml IVPB PRN PRN Hypoglycemia Protocol Cefazolin Sodium 2 gm in 50 mls @ 100 mls/hr 09/26/24 17:00 09/27/24 01:00 Ancef 2 Gm/D5w 50 Ml IVPB Infused Q8H ELIECER Infusion Ketorolac Tromethamine 30 mg 09/25/24 13:15 09/27/24 04:50 Ketorolac 30 Mg/Ml Vial (*Bkc) IV PUSH 09/30/24 13:14 30 mg Q6H PRN Administration Pain Rated 4-6 Magnesium Hydroxide 30 ml 09/26/24 13:03 Magnesium Hydroxide Susp 30 Ml Udc PO BID PRN Constipation Ondansetron HCl 4 mg 09/25/24 13:15 Ondansetron Inj 4 Mg/2 Ml Vial IV PUSH Q4H PRN Nausea Polyethylene Glycol 17 gm 09/27/24 09:00 Polyethylene Glycol 3350 17 Gm Powd.Pack PO QAM ELIECER Senna/Docusate Sodium 2 tab 09/26/24 17:00 09/26/24 16:56 Senna/Docusate Sodium Tablet PO 2 tab BID ELIECER Administration Radiology Results: ITS Impressions Tibia/Fibula X-Ray 09/25/24 10:26 IMPRESSION: 1. Left ankle fracture dislocation. Ankle X-Ray 09/25/24 11:03 IMPRESSION: 1. Significant decrease in now mild residual displacement of lateral and posterior malleolar fragments and successful reduction of the previously dislocated tibiotalar joint with mild residual lateral subluxation. Chest X-Ray 09/25/24 11:55 IMPRESSION: 1: NO ACUTE CARDIOPULMONARY DISEASE. Intraoperative X-Ray 09/26/24 11:22 IMPRESSION: 1. Near-anatomic alignment post open reduction internal fixation of medial and posterior malleolar fractures at the left ankle. Labs Labs: Laboratory Results - last 24 hr 09/27/24 06:05 WBC 8.5 RBC 4.09 L Hgb 13.1 Hct 38.9 MCV 95.1 MCH 32.0 MCHC 33.7 RDW 12.8 Plt Count 179 MPV 9.6 Sodium 140 Potassium 3.7 Chloride 104 Carbon Dioxide 32 H Anion Gap 4 BUN 8 D Creatinine 0.50 L Estim Creat Clear Calc 107 Estimated GFR > 60 Glucose 98 Calcium 8.8 Total Bilirubin 0.5 AST 28 ALT 20 Alkaline Phosphatase 64 Total Protein 7.0 Albumin 3.8
[2024-09-27] MEDS: polyethylene glycoL 3350 17 GM POWD.PACK PO (09:50)
[2024-09-27] MEDS: FAMOTIDINE 20 MG TABLET PO ×2 (09:50→21:45)
[2024-09-27] MEDS: ASPIRIN 81 MG ENTERIC TABLET PO ×2 (09:51→21:45)
[2024-09-27] MEDS: SENNA/DOCUSATE SODIUM TABLET 2 TAB PO ×2 (09:51→18:25)
[2024-09-27] MEDS: CYCLOBENZAPRINE HCL 10 MG TABLET PO ×2 (09:53→21:46)
[2024-09-27] MEDS: HYDROmorphone HCL INJ (*CRX) 1 MG/ML SYR 0.5 MG IV PUSH (15:42)
[2024-09-27 15:56] VITALS: BP 124/76; PULSE 63; RESP 18; TEMP 36.4; O2SAT 95
--- NOTE | 2024-09-27 16:08 | P.PNOP_ITS ---
Progress Note: A&P Assessment and Plan (1) Trimalleolar fracture of left ankle: Qualifiers: Encounter type: subsequent encounter Fracture healing: with routine healing Fracture type: closed Qualified Code(s): S82.852D - Displaced trimalleolar fracture of left lower leg, subsequent encounter for closed fracture with routine healing Code(s): S82.852A - Displaced trimalleolar fracture of left lower leg, initial encounter for closed fracture Status: Acute Assessment and Plan: Postoperative day 1 ORIF left ankle fracture. Pain improving but still requiring IV medication. P.T./OT, nonweightbearing, walker Antibiotic regimen completed. Pain control. Disposition when stable. Plan Patient received pain medication shot. We will see how she does with that. if pain controlled with oral medication tomorrow plan for discharge home. Subjective Subjective Date/Time Seen: 09/27/24 16:08 Post Op day: 1 Principal diagnosis: Left ankle fracture Interval history: Postoperative day 1 ORIF left ankle fracture. Pain yesterday. Starting improved. No nausea or vomiting. Tolerating diet. Exam Const: General: healthy appearing; No in distress or confusion Orientation/consciousness: patient oriented x3 and No confusion HENMT: Head: normal to inspection, normocephalic and atraumatic Eyes: Conjunctivae: conjunctivae normal Sclera: sclerae normal Resp: Effort & Inspection: normal respiratory effort and no audible wheezes Neuro: General: patient oriented x3 and No confusion Extrem: Left lower extremity: ankle Details: other (Splint in place. Negative Homans.) and foot Details: normal capillary refill, toes with normal ROM (Good color and sensation) and vascular exam Details: dorsalis pedis pulse present and normal capillary refill Psych: Affect: normal affect Objective Data Vital Signs Vital Signs: Vital Signs - 24 hr 09/26/24 18:48 09/26/24 20:00 09/26/24 21:20 Temperature 97.5 F L 97.9 F Pulse Rate 59 L 60 Respiratory Rate 18 18 Blood Pressure 115/80 123/75 Pulse Oximetry 94 96 Oxygen Delivery Room Air 09/27/24 05:34 09/27/24 08:32 09/27/24 08:44 Temperature 97.7 F Pulse Rate 68 Respiratory Rate 14 Blood Pressure 126/78 Pulse Oximetry 96 Oxygen Delivery Room Air Room Air Intake/Output Intake/Output: Intake & Output 09/24/24 09/25/24 09/26/24 09/27/24 23:59 23:59 23:59 23:59 Intake Total 480 1190 1010 Output Total 1080 Balance 819 448 3058 Meds/Results Medications: Active Medications Generic Name Dose Route Start Last Admin Trade Name Freq PRN Reason Stop Dose Admin Acetaminophen 650 mg 09/25/24 13:15 09/26/24 07:56 Acetaminophen 325 Mg Tablet PO 650 mg Q4H PRN Administration Mild Pain (1-3) or Fever Hydrocodone Bitart/Acetaminophen 1 tab 09/26/24 14:28 09/27/24 09:52 Hydrocodone/Acetaminophen (*Crx) 7.5-325 Mg Tablet PO 1 tab Q4H PRN Administration Pain Rated 4-6 Aspirin 81 mg 09/26/24 21:00 09/27/24 09:51 Aspirin 81 Mg Enteric Tablet PO 81 mg Q12HR ELIECER Administration Cyclobenzaprine HCl 10 mg 09/26/24 13:03 09/27/24 09:53 Cyclobenzaprine Hcl 10 Mg Tablet PO 10 mg Q8H PRN Administration Muscle Spasm Dextrose 12.5 gm 09/25/24 13:15 Dextrose 50% 25 Gm/50 Ml Syringe IV PUSH PRN PRN Hypoglycemia Protocol Duloxetine HCl 60 mg 09/25/24 21:00 09/26/24 21:54 Duloxetine Hcl 60 Mg Capsule.Dr PO 60 mg QHS ELIECER Administration Famotidine 20 mg 09/25/24 21:00 09/27/24 09:50 Famotidine 20 Mg Tablet PO 20 mg Q12HR ELIECER Administration Glucagon 1 mg 09/25/24 13:15 Glucagon For Inj 1 Mg Vial IM PRN PRN Hypoglycemia Protocol Glucose 15 gm 09/25/24 13:15 Glucose Oral Gel 15 Gm Of Glucse In 37.5 Gm Tube PO PRN PRN Hypoglycemia Protocol Hydromorphone HCl 0.5 mg 09/26/24 14:45 09/27/24 15:42 Hydromorphone Hcl Inj (*Crx) 1 Mg/Ml Syr IV PUSH 0.5 mg Q2-3H PRN Administration Pain Rated 7-10 Dextrose 1,000 mls @ 100 mls/hr 09/25/24 13:15 Dextrose 5% 1,000 Ml IVPB PRN PRN Hypoglycemia Protocol Cefazolin Sodium 2 gm in 50 mls @ 100 mls/hr 09/26/24 17:00 09/27/24 10:30 Ancef 2 Gm/D5w 50 Ml IVPB Infused Q8H ELIECER Infusion Ketorolac Tromethamine 30 mg 09/25/24 13:15 09/27/24 04:50 Ketorolac 30 Mg/Ml Vial (*Bkc) IV PUSH 09/30/24 13:14 30 mg Q6H PRN Administration Pain Rated 4-6 Magnesium Hydroxide 30 ml 09/26/24 13:03 Magnesium Hydroxide Susp 30 Ml Udc PO BID PRN Constipation Ondansetron HCl 4 mg 09/25/24 13:15 Ondansetron Inj 4 Mg/2 Ml Vial IV PUSH Q4H PRN Nausea Polyethylene Glycol 17 gm 09/27/24 09:00 09/27/24 09:50 Polyethylene Glycol 3350 17 Gm Powd.Pack PO 17 gm QAM ELIECER Administration Senna/Docusate Sodium 2 tab 09/26/24 17:00 09/27/24 09:51 Senna/Docusate Sodium Tablet PO 2 tab BID ELIECER Administration Radiology Results: ITS Impressions Tibia/Fibula X-Ray 09/25/24 10:26 IMPRESSION: 1. Left ankle fracture dislocation. Ankle X-Ray 09/25/24 11:03 IMPRESSION: 1. Significant decrease in now mild residual displacement of lateral and posterior malleolar fragments and successful reduction of the previously dislo cated tibiotalar joint with mild residual lateral subluxation. Chest X-Ray 09/25/24 11:55 IMPRESSION: 1: NO ACUTE CARDIOPULMONARY DISEASE. Intraoperative X-Ray 09/26/24 11:22 IMPRESSION: 1. Near-anatomic alignment post open reduction internal fixation of medial and posterior malleolar fractures at the left ankle. Labs Labs: Laboratory Results - last 24 hr 09/27/24 06:05 WBC 8.5 RBC 4.09 L Hgb 13.1 Hct 38.9 MCV 95.1 MCH 32.0 MCHC 33.7 RDW 12.8 Plt Count 179 MPV 9.6 Sodium 140 Potassium 3.7 Chloride 104 Carbon Dioxide 32 H Anion Gap 4 BUN 8 D Creatinine 0.50 L Estim Creat Clear Calc 107 Estimated GFR > 60 Glucose 98 Calcium 8.8 Total Bilirubin 0.5 AST 28 ALT 20 Alkaline Phosphatase 64 Total Protein 7.0 Albumin 3.8
[2024-09-27 21:06] VITALS: BP 117/76; PULSE 66; RESP 16; TEMP 36.6; O2SAT 96
[2024-09-27] MEDS: DULoxetine HCL 60 MG CAPSULE.DR PO (21:45)
[2024-09-28] MEDS: HYDROcodone/acetaminophen (*CRX) 7.5-325 MG TABLET 1 TAB PO ×3 (02:50→15:09)
[2024-09-28 05:24] VITALS: BP 129/87; PULSE 70; RESP 14; TEMP 36.3; O2SAT 97
[2024-09-28] MEDS: SENNA/DOCUSATE SODIUM TABLET 2 TAB PO ×2 (08:40→17:27)
[2024-09-28] MEDS: CYCLOBENZAPRINE HCL 10 MG TABLET PO ×2 (08:40→17:27)
[2024-09-28] MEDS: ASPIRIN 81 MG ENTERIC TABLET PO (08:41)
[2024-09-28] MEDS: polyethylene glycoL 3350 17 GM POWD.PACK PO (08:41)
[2024-09-28] MEDS: FAMOTIDINE 20 MG TABLET PO (08:41)
--- NOTE | 2024-09-28 10:30 | P.PNIM_ITS ---
Progress Note: A&P Assessment and Plan (1) Trimalleolar fracture of left ankle: Qualifiers: Encounter type: subsequent encounter Fracture healing: with routine healing Fracture type: closed Qualified Code(s): S82.852D - Displaced trimalleolar fracture of left lower leg, subsequent encounter for closed fracture with routine healing Code(s): S82.852A - Displaced trimalleolar fracture of left lower leg, initial encounter for closed fracture Status: Acute Assessment and Plan: ankle XR: Displaced fractures of the distal aspect of the fibula and the posterior inferior margin of the tibia. There is posterior and lateral displacement of the talus with respect to the tibia. - tib/fib XR: Left ankle fracture dislocation. - CXR: No acute cardiopulmonary disease. - orthopedist consulted, per ED - plan for surgical management tomorrow (09/26), NPO at midnight - analgesics p.r.n. - neurovascular checks Q4h 09/26/2024 Stable exam. schedule surgery 09/27 S/P pen reduction internal fixation left ankle trimalleolar fracture with fixation posterior lip; open reduction internal fixation syndesmosis disruption left ankle. D1 Continue pain management 09/28: Patient is medically stable, patient has some numbness on left foot, able to move toes. Patient is medically stable for discharge. Discharge plan per orthopedic surgeon (2) Closed dislocation of ankle: Qualifiers: Encounter type: initial encounter Laterality: left Qualified Code(s): S93.05XA - Dislocation of left ankle joint, initial encounter Code(s): S93.06XA - Dislocation of unspecified ankle joint, initial encounter Status: Acute Assessment and Plan: - see tib/fib XR above - ankle XR, post-reduction: Significant decrease in now mild residual displacement of lateral and posterior malleolar fragments and successful reduction of the previously dislocated tibiotalar joint with mild residual lateral subluxation. - splint applied in ED Plan Diet: NPO, schedule surgery today. GI Prophylaxis: Not currently indicated DVT Prophylaxis: hold until post surgery Lines: peripheral Code Status: full code Subjective Date/time seen: 09/28/24 10:30 Interval history: Patient feels pain is improving, some numbness of the left foot, able to move toes, patient is afebrile blood pressure stable, Exam Narrative: GENERAL: Pleasant, in no acute distress. Well-nourished. - EYES: EOMI. Anicteric. - HENT: Moist mucous membranes. - LUNGS: Clear to auscultation bilateral ly, no wheezing, rhonchi, or rales. - CARDIOVASCULAR: Regular rate and rhyth m. No murmur. No JVD. - ABDOMEN: Soft, non-tender and non-dist ended. No palpable masses. - EXTREMITIES: No edema. Peripheral puls es 2+. Non-tender. Restricted movement of left leg because of pain - NEUROLOGIC: No focal neurological defi cits. CN II-XII grossly intact. - PSYCHIATRIC: Awake, Alert and oriented x 3. Appropriate mood and affect. - SKIN: No rashes or lesions. Warm. - LYMPH: No cervical lymphadenopathy. Objective Data Vital Signs Vital Signs: Vital Signs - 24 hr 09/27/24 15:56 09/27/24 20:00 09/27/24 21:06 Temperature 97.6 F 97.9 F Pulse Rate 63 66 Respiratory Rate 18 16 Blood Pressure 124/76 117/76 Pulse Oximetry 95 96 Oxygen Delivery Room Air 09/28/24 05:24 Temperature 97.3 F L Pulse Rate 70 Respiratory Rate 14 Blood Pressure 129/87 Pulse Oximetry 97 Oxygen Delivery Intake/Output Intake/Output: Intake & Output 09/25/24 09/26/24 09/27/24 09/28/24 23:59 23:59 23:59 23:59 Intake Total 480 1190 1800 800 Output Total 1080 150 Balance 343 744 4225 800 Meds/Results Medications: Active Medications Generic Name Dose Route Start Last Admin Trade Name Freq PRN Reason Stop Dose Admin Acetaminophen 650 mg 09/25/24 13:15 09/26/24 07:56 Acetaminophen 325 Mg Tablet PO 650 mg Q4H PRN Administration Mild Pain (1-3) or Fever Hydrocodone Bitart/Acetaminophen 1 tab 09/26/24 14:28 09/28/24 08:40 Hydrocodone/Acetaminophen (*Crx) 7.5-325 Mg Tablet PO 1 tab Q4H PRN Administration Pain Rated 4-6 Aspirin 81 mg 09/26/24 21:00 09/28/24 08:41 Aspirin 81 Mg Enteric Tablet PO 81 mg Q12HR ELIECER Administration Cyclobenzaprine HCl 10 mg 09/26/24 13:03 09/28/24 08:40 Cyclobenzaprine Hcl 10 Mg Tablet PO 10 mg Q8H PRN Administration Muscle Spasm Dextrose 12.5 gm 09/25/24 13:15 Dextrose 50% 25 Gm/50 Ml Syringe IV PUSH PRN PRN Hypoglycemia Protocol Duloxetine HCl 60 mg 09/25/24 21:00 09/27/24 21:45 Duloxetine Hcl 60 Mg Capsule.Dr PO 60 mg QHS ELIECER Administration Famotidine 20 mg 09/25/24 21:00 09/28/24 08:41 Famotidine 20 Mg Tablet PO 20 mg Q12HR ELIECER Administration Glucagon 1 mg 09/25/24 13:15 Glucagon For Inj 1 Mg Vial IM PRN PRN Hypoglycemia Protocol Glucose 15 gm 09/25/24 13:15 Glucose Oral Gel 15 Gm Of Glucse In 37.5 Gm Tube PO PRN PRN Hypoglycemia Protocol Hydromorphone HCl 0.5 mg 09/26/24 14:45 09/27/24 15:42 Hydromorphone Hcl Inj (*Crx) 1 Mg/Ml Syr IV PUSH 0.5 mg Q2-3H PRN Administration Pain Rated 7-10 Dextrose 1,000 mls @ 100 mls/hr 09/25/24 13:15 Dextrose 5% 1,000 Ml IVPB PRN PRN Hypoglycemia Protocol Ketorolac Tromethamine 30 mg 09/25/24 13:15 09/27/24 18:24 Ketorolac 30 Mg/Ml Vial (*Bkc) IV PUSH 09/30/24 13:14 30 mg Q6H PRN Administration Pain Rated 4-6 Magnesium Hydroxide 30 ml 09/26/24 13:03 Magnesium Hydroxide Susp 30 Ml Udc PO BID PRN Constipation Ondansetron HCl 4 mg 09/25/24 13:15 Ondansetron Inj 4 Mg/2 Ml Vial IV PUSH Q4H PRN Nausea Polyethylene Glycol 17 gm 09/27/24 09:00 09/28/24 08:41 Polyethylene Glycol 3350 17 Gm Powd.Pack PO 17 gm QAM ELIECER Administration Senna/Docusate Sodium 2 tab 09/26/24 17:00 09/28/24 08:40 Senna/Docusate Sodium Tablet PO 2 tab BID ELIECER Administration Radiology Results: ITS Impressions Tibia/Fibula X-Ray 09/25/24 10:26 IMPRESSION: 1. Left ankle fracture dislocation. Ankle X-Ray 09/25/24 11:03 IMPRESSION: 1. Significant decrease in now mild residual displacement of lateral and posterior malleolar fragments and successful reduction of the previously dislocated tibiotalar joint with mild residual lateral subluxation. Chest X-Ray 09/25/24 11:55 IMPRESSION: 1: NO ACUTE CARDIOPULMONARY DISEASE. Intraoperative X-Ray 09/26/24 11:22 IMPRESSION: 1. Near-anatomic alignment post open reduction internal fixation of medial and posterior malleolar fractures at the left ankle.
[2024-09-28 15:51] VITALS: BP 120/77; PULSE 69; RESP 16; TEMP 36.3; O2SAT 98
--- NOTE | 2024-10-01 18:26 | P.DS_ITS ---
DS: Admitting Diagnosis Discharge Date 09/28/24 Admitting Diagnosis (1) Trimalleolar fracture of left ankle: Qualifiers: Encounter type: subsequent encounter Fracture healing: with routine healing Fracture type: closed Qualified Code(s): S82.852D - Displaced trimalleolar fracture of left lower leg, subsequent encounter for closed fracture with routine healing Code(s): S82.852A - Displaced trimalleolar fracture of left lower leg, initial encounter for closed fracture Status: Acute Assessment and Plan: DS: Discharge Diagnosis Discharge Diagnosis (1) Trimalleolar fracture of left ankle: Qualifiers: Encounter type: subsequent encounter Fracture type: closed Fracture healing: with routine healing Qualified Code(s): S82.852D - Displaced trimalleolar fracture of left lower leg, subsequent encounter for closed fracture with routine healing Code(s): S82.852A - Displaced trimalleolar fracture of left lower leg, initial encounter for closed fracture Status: Acute (2) Closed dislocation of ankle: Qualifiers: Encounter type: initial encounter Laterality: left Qualified Code(s): S93.05XA - Dislocation of left ankle joint, initial encounter Code(s): S93.06XA - Dislocation of unspecified ankle joint, initial encounter Status: Acute Assessment and Plan: - see tib/fib XR above - ankle XR, post-reduction: Significant decrease in now mild residual displacement of lateral and posterior malleolar fragments and successful reduction of the previously dislocated tibiotalar joint with mild residual lateral subluxation. - splint applied in ED Plan Diet: NPO, schedule surgery today. GI Prophylaxis: Not currently indicated DVT Prophylaxis: hold until post surgery Lines: peripheral Code Status: full code DS: Summary Hospital Course Hospital Course: 54 y/o F presents here with fall with PMH of urinary incontinence, chronic pain, and depression. The patient presents here with pain s/p ground level fall via EMS from home. The patient reports she was chasing her son around the house in slippers when she slipped and fell. She reports she felt a sharp pain in her left ankle and an immediate deformity/discoloration to her left ankle after the fall. She was unable to ambulate after the injury. This prompted her to call EMS. The patient endorses associated partial numbness to the affected foot that improved when ankle was reduced. Denies head strike or loss of consciousness. The patient is not on anticoagulation. Initial VS at presentation: 97.5? F, HR 67, RR 20, 138/84, and 98% on RA. ED workup showed: No leukocytosis, no anemia, normal coags, no significant electrolyte derangements, creatinine 0.43 and GFR >60. Ankle XR showed a displaced fracture of the distal aspect of the fibula and posterior inferior margin of the tibia, there is posterior and lateral displacement of the talus with respect to the tibia. Tib/fib XR showed a left ankle fracture dislocation. CXR showed no acute cardiopulmonary disease. The following med issues have been addressed during hospitalization ankle XR: Displaced fractures of the distal aspect of the fibula and the post erior inferior margin of the tibia. There is posterior and lateral displacement of the talus with respect to the tibia. - tib/fib XR: Left ankle fracture dislocation. - CXR: No acute cardiopulmonary disease. - orthopedist consulted, per ED - plan for surgical management tomorrow (09/26), NPO at midnight - analgesics p.r.n. - neurovascular checks Q4h 09/26/2024 Stable exam. schedule surgery 09/27 S/P pen reduction internal fixation left ankle trimalleolar fracture with fixation posterior lip; open reduction internal fixation syndesmosis disruption left ankle. D1 Continue pain management 09/28: Patient is medically stable, patient has some numbness on left foot, able to move toes. Patient is medically stable for discharge. Time Spent with Patient Time attestation: Total time spent providing and/or coordinating discharge services: Exam Narrative: GENERAL: Pleasant, in no acute distress. Well-nourished. - EYES: EOMI. Anicteric. - HENT: Moist mucous membranes. - LUNGS: Clear to auscultation bilateral ly, no wheezing, rhonchi, or rales. - CARDIOVASCULAR: Regular rate and rhyth m. No murmur. No JVD. - ABDOMEN: Soft, non-tender and non-dist ended. No palpable masses. - EXTREMITIES: No edema. Peripheral puls es 2+. Non-tender. Restricted movement of left leg because of pain - NEUROLOGIC: No focal neurological defi cits. CN II-XII grossly intact. - PSYCHIATRIC: Awake, Alert and oriented x 3. Appropriate mood and affect. - SKIN: No rashes or lesions. Warm. - LYMPH: No cervical lymphadenopathy. Discharge Plan Discharge Attending physician on discharge: Cathy Lopez Consulting providers: Wander Brown; John Bronson; Evgeny Oliva; Sada Viramontes; Syd Cash; Jase Ratliff; Oral Chino; Mendez Cullen; Thomas Ott V.; Javed Tomlin Discharging Clinician: Cathy Lopez Anticipated Discharge Date/Time: 09/28/24 10:00 Patient Disposition: Home Health Service Activity: follow weight bearing status Diet: as tolerated Discharge Instructions: WANDER BROWN M.D. [facility] [address] [place] [address] POST OPERATIVE DISCHARGE INSTRUCTIONS FOOT/ANKLE SURGERY * Elevate the involved extremity on pillows. * For the first 48 hours, make sure that the foot is above the level of your heart * Carefully observe the exposed toes for evidence of swelling or discoloration. * If the dressing is uncomfortable or tight, call the Dr?s office. * Keep the dressing clean and dry. Remove dressing only as directed by doctor. Splint in place, keep clean and dry and leave in place until your follow up appointment. * If the pain medication does not provide adequate relief, please call Dr?s office. * Take other medication as prescribed. * Please call Dr?s office to confirm follow-up appointment for 1 week. * If you have any questions, please call the Dr?s office. * Diet as tolerated. * Activity:____X____Restrictions as follows: NO weight on operative leg; crutches or walker for ambulation * Do not drive for 24 hours, unless otherwise instructed. * Additional instructions: Patient Instructions: Antibiotic Form Patient Language: Taiwanese Stand Alone Forms: General Discharge Information Follow-up/Referrals: Wander Brown MD [Physician] - 10/01/24 10:00 am Discharge Medications: New aspirin 81 mg Tablet,Delayed Release (Dr/Ec) 81 mg PO Q12HR Qty: 30 1RF Continued duloxetine 60 mg capsule,delayed release(DR/EC) 60 mg PO QHS famotidine 20 mg tablet 20 mg PO Q12H lisdexamfetamine 50 mg capsule 50 mg PO PRN Gemtesa 75 mg tablet 75 mg PO DAILY@0800 No Action cyclobenzaprine 10 mg tablet 10 mg PO TID PRN (Reason: muscle spasm) Qty: 30 2RF hydrocodone-acetaminophen 7.5-325 mg tablet 1 tablet PO Q4H PRN (Reason: Pain Rated 4-6) 5 Days Qty: 30 0RF Date of admission: 09/26/24 09:03 Primary Care Provider: UNKNOWN,DOCTOR Admitting Provider: Talat Sapp Attending physician on admission: Cathy Lopez Condition: Stable
== END 2024-09-28 18:25 | disposition home or self-care (01) | DRG 494 ==
LOC: ANHED 12:27 → ANH3MEDSUR 15:18
PROVIDERS: Internal Medicine; Orthopaedic Surgery; Student in an Organized Health Care Education/Training Program; Admitting Provider Internal Medicine; Emergency Provider Physician Assistant; Visit Provider Hospitalist
PROC: 0QSH04Z Reposition Left Tibia with Internal Fixation Device, Open Approach (ICD-10-PCS; principal; 2024-09-26 09:30)
DX: S82.852A Displaced trimalleolar fracture of left lower leg, initial encounter for closed fracture (principal); S93.05XA Dislocation of left ankle joint, initial encounter; S93.432A Sprain of tibiofibular ligament of left ankle, initial encounter; W01.0XXA Fall on same level from slipping, tripping and stumbling without subsequent striking against object, initial encounter; R32 Unspecified urinary incontinence; G89.29 Other chronic pain; F32.A Depression, unspecified; E66.9 Obesity, unspecified; Z68.36 Body mass index [BMI] 36.0-36.9, adult; Z87.891 Personal history of nicotine dependence
CPT/HCPCS: 27810; 36415; 71045; 73590; 73610; 80048; 80053; 83036; 85025; 85027; 85610; 85730; 93005; 96375; 96376; 97116; 97161; 97165; 97530; 97535; 99199; 99285; A9270; C1713; C1769; G0378; J0690; J1100; J1171; J1885; J2405; J2704; J3010; J3480; J7120